=== PATIENT | male | born 1975 | race Two or more races ===

== ENCOUNTER 2020-08-08 07:17 | Outpatient (REF) | payer BC, SELFPAY | END 2020-08-08 07:18 | disposition home or self-care (01) | LOC: HO.LAB 07:17 | PROVIDERS: PCP Internal Medicine; Visit Provider Internal Medicine | DX: Z20.822 Contact with and (suspected) exposure to COVID-19 (principal) | CPT/HCPCS: 36415; C9803; U0003 ==

== ENCOUNTER 2020-11-17 08:22 | Outpatient (REF) | payer BC, SELFPAY ==
[2020-11-17 09:17] LABS: MANUAL DIFF FLAG NO
[2020-11-17 09:20] LABS: Basophils Percent Auto 0.4 % (0-2); Eosinophils Absolute Auto 0.1 X10*3/uL (0.0-0.4); Eosinophils Percent Auto 1.1 % (0-4); Hematocrit 40.8 % (42-52); Hemoglobin 12.9 g/dl (14.0-18.0); Imm Gran Abs Auto 0.01 X10*3/uL (0.00-0.03); Imm Gran Pct Auto 0.2 % (0.0-0.4); Lymphocytes Absolute Auto 1.9 X10*3/uL (1.2-4.9); Lymphocytes Percent Auto 36.2 % (20-40); Mean Corpuscular HGB Conc 31.6 g/dl (31.0-36.0); Mean Corpuscular Hemoglobin 27.7 pg (27.0-33.0); Mean Corpuscular Volume 87.6 fL (80-98); Mean Platelet Volume 9.9 fL (9.4-12.4); Monocytes Absolute Auto 0.6 X10*3/uL (0.1-1.2); Monocytes Percent Auto 10.4 % (2-11); Neutrophils Absolute Auto 2.8 X10*3/uL (2.0-8.3); Neutrophils Percent Auto 51.7 % (45-73); Platelet Count 304 X10*3/uL (160-400); Red Blood Count 4.66 X10*6/uL (4.60-5.80); Red Cell Distribution Width 13.5 % (11.0-16.0); White Blood Count 5.3 X10*3/uL (4.8-10.8)
[2020-11-17 09:49] LABS: Alanine Aminotransferase 10 U/L (0-40); Albumin Level 3.9 g/dL (3.5-5.0); Alkaline Phosphatase 67 U/L (39-117); Anion Gap 12 (12-20); Aspartate Amino Transferase 11 U/L (5-37); Bilirubin Total 0.7 mg/dL (0.0-1.0); Blood Urea Nitrogen 14 mg/dL (9-16); Calcium 9.1 mg/dL (8.4-10.2); Carbon Dioxide 26 mmol/L (22-29); Chloride 104 mmol/L (96-108); Cholesterol 133 mg/dL; Estimated Glomerular Filt Rate > 60; Glucose Fasting 173 mg/dL (60-99); HDL Cholesterol 41 mg/dL; LDL Cholesterol Calculated 77 mg/dl; Potassium 4.3 mmol/L (3.3-5.1); Sodium 138 mmol/L (135-145); Total Protein 6.8 g/dL (6.5-8.0); Triglycerides 76 mg/dL
[2020-11-17 10:31] LABS: Creatinine Urine 172.86 mg/dL; Estimated Average Glucose 318 mg/dL; Hemoglobin A1c % 12.7 %; Microalbum/Creatinine Ratio Ur 24.8 ug/mg cr
== END 2020-11-17 08:23 | disposition home or self-care (01) ==
LOC: HO.LAB 08:22
PROVIDERS: PCP Internal Medicine; Visit Provider Internal Medicine
DX: Z00.01 Encounter for general adult medical examination with abnormal findings (principal); E11.9 Type 2 diabetes mellitus without complications; E78.00 Pure hypercholesterolemia, unspecified; I10 Essential (primary) hypertension
CPT/HCPCS: 36415; 80053; 80061; 82043; 83036; 85025

== ENCOUNTER → 2021-02-26 14:32 | Outpatient (BNVA) | payer SELFPAY | PROVIDERS: PCP Internal Medicine; Visit Provider Physician Assistant | DX: Z02.79 Encounter for issue of other medical certificate (principal) ==

== ENCOUNTER 2021-04-01 08:26 | Outpatient (REF) | payer BC, SELFPAY | END 2021-04-01 08:27 | disposition home or self-care (01) | LOC: HO.LAB 08:26 | PROVIDERS: PCP Internal Medicine; Visit Provider Internal Medicine | DX: Z20.822 Contact with and (suspected) exposure to COVID-19 (principal) | CPT/HCPCS: C9803; U0003; U0005 ==

== ENCOUNTER 2022-02-10 06:00 | Outpatient (REF) | payer BC, SELFPAY ==
[2022-02-10 08:01] LABS: Estimated Average Glucose 263 mg/dL; Hemoglobin A1c % 10.8 %
[2022-02-10 08:38] LABS: Alanine Aminotransferase 39 U/L (0-40); Alkaline Phosphatase 78 U/L (39-117); Anion Gap 12 (12-20); Aspartate Amino Transferase 18 U/L (5-37); Bilirubin Total 0.5 mg/dL (0.0-1.0); Blood Urea Nitrogen 16 mg/dL (9-16); Carbon Dioxide 28 mmol/L (22-29); Chloride 102 mmol/L (96-108); Estimated Glomerular Filt Rate > 60; Glucose Random 295 mg/dL (60-115); Potassium 4.5 mmol/L (3.3-5.1); Sodium 137 mmol/L (135-145)
== END 2022-02-10 06:01 | disposition home or self-care (01) ==
LOC: HO.LAB 06:00
PROVIDERS: PCP Internal Medicine; Visit Provider Internal Medicine
DX: E11.65 Type 2 diabetes mellitus with hyperglycemia (principal); I10 Essential (primary) hypertension; L84 Corns and callosities; R80.0 Isolated proteinuria
CPT/HCPCS: 36415; 80053; 83036

== ENCOUNTER → 2022-09-25 15:05 | Outpatient (BNVA) | payer BC, SELFPAY | PROVIDERS: PCP Internal Medicine; Visit Provider Internal Medicine | DX: I48.19 Other persistent atrial fibrillation (principal); I10 Essential (primary) hypertension | CPT/HCPCS: 93005 ==

== ENCOUNTER → 2022-10-06 10:52 | Outpatient (REF) | payer BC, SELFPAY ==
--- NOTE | 2022-10-06 10:56 | HM_ITS ---
Conclusion: 1. Patient was monitored for total period of 3 days 2. Baseline was atrial fibrillation with average heart rate of 86 beats per minute overall adequate rate control 3. No significant pauses noted 4. Rare PVCs noted 5. No patient reported symptoms MTDD
--- NOTE | 2022-10-06 10:56 | CA_ITS ---
Transthoracic Echocardiogram Patient (Last, First, Middle): Jayce Johns A Gender: Male Date of : 1975 Age: 47 Procedure Date: 10/06/2022 Procedure Type: Transthoracic Echocardiogram Location: OP Height: 182.88 cm Weight: 115.21 kg BSA: 2.36 m2 Heart Rate: bpm BP: 134 / 80 mmHg Lifter Driver: Referring MD: Zafar Rosales MD Pnp: Baljinder Rodriguez MD Symptoms: I48.19 - Other persistent atrial fibrillation Study Quality: Fair, Good with Definity ECG Rhythm: Atrial Fibrillation Conclusions: - 1. Mildly dilated left ventricle with moderate to severe LV systolic dysfunction with LVEF of 30 35% 2. Moderately dilated left atrium 3. Mild mitral regurgitation 4. Normal RV systolic pressure 5. No gross pericardial effusion Findings Procedure Information Contrast agent, definity, is being given per protocol without apparent complications. Left Ventricle Mildly increased left ventricular cavity size. There is normal left ventricular wall thickness. The left ventricular systolic function is moderate to severely decreased. The visually estimated ejection fraction is between 30-35%. Diastolic function is indeterminate on the basis of available data. Right Ventricle Normal right ventricular cavity size and systolic function. Atria The left atrium is moderately dilated. Interatrial shunt cannot be excluded. The right atrium is mildly dilated. Aortic Valve Normal aortic valve structure and function. There is no aortic valve stenosis. There is no aortic valve regurgitation. Mitral Valve Normal mitral valve structure and function. There is mild mitral valve regurgitation. There is no mitral valve stenosis. Pulmonic Valve The pulmonic valve is likely normal. There is trace to mild pulmonic valve regurgitation. Tricuspid Valve Normal tricuspid valve structure. There is mild tricuspid valve regurgitation. The right ventricular systolic pressure is normal. The right ventricular systolic pressure is 18 mmHg. Normal right atrial pressure. There is no evidence of pulmonary hypertension. Great Vessels All visible segments of the aorta are normal in size. The pulmonary artery was not well visualized. Venous The inferior vena cava is normal in size and collapses greater than 50% with inspiration. Pericardium/Pleural There is no evidence of pericardial effusion. Prior Study Comparison No prior study available for comparison. Measurements 2D Linear Measurements IVSd: 1.07 0.6-0.9/0.6-1.0 cm LVIDd: 6.05 3.9-5.3/4.2-5.9 cm LVIDd Index: 2.56 2.4-3.2/2.2-3.1 cm/m2 LVIDs: 5.24 2.0-3.6 cm LVPWd: 1.02 0.7-1.1 cm Ao Root: 3.20 2.1-3.5 cm LA Diam: 4.10 2.7-3.8/3.0-4.0 cm LAIDs Index: 1.74 1.5-2.3 cm/m2 LV Mass: 330.62 67-162/88-224 g LV Mass Index: 140.10 43-95/49-115 g/m2 LVOT Diam: 2.30 3.0+(-)1.3 cm 2D Systolic Function EF 4C: 34.50 >55% EF 2C: 24.00 >55% EF BiP: 30.20 >55% Mitral Valve MV Pk E: 1.02 MV Decel Time: 271.00 E'Lateral: 12.10 E'Medial: 8.16 E/E' Med: 12.50 E/E' Lat: 8.40 PHT: 79.00 MVA PHT: 2.78 Decel Lumpkin: 3.75 Aortic Valve AoV Pk Romulo: 1.23 AoV Mn Romulo: 0.77 AoV VTI: 0.27 AoV Pk Grad: 6.00 Aov Mn Grad: 3.00 BRADFORD Cont.VTI: 2.44 LVOT LVOT Pk Romulo: 0.80 LVOT Mn Romulo: 0.58 LVOT VTI: 0.16 LVOT Pk Grad: 3.00 LVOT Mn Grad: 2.00 LVOT Diam: 2.30 LVOT Area: 4.15 Diastolic Function MV Pk E: 1.02 E'Medial: 8.16 E/E' Med: 12.50 E' Laterial: 12.10 E/E' Lat: 8.40 Right Ventricle TAPSE (mm): 29.00 TVS' Romulo: 12.00 Tricuspid Valve TR Pk Romulo: 1.96 TR Pk Grad: 15.00 RA Press: 3.00 RVSP: 18.00 Great Vessels Aorta Ao Root-2D: 3.20 2.0-3.7 cm Ao Asc: 3.40 2.1-3.4 cm Pulmonary Valve PV Pk Romulo: 1.18 Peak PV Grad: 6.00 Updated in Other Vendor System with Status of Final Baljinder Rodriguez MD electronically signed on 10/07/2022 4:55:03 PM with status of Final
== END ==
LOC: HO.CARD 10:52
PROVIDERS: Visit Provider Internal Medicine
DX: I48.19 Other persistent atrial fibrillation (principal)
CPT/HCPCS: 93242; 93306; Q9957

== ENCOUNTER → 2022-10-15 12:26 | Outpatient (BNVA) | payer BC, SELFPAY | PROVIDERS: PCP Internal Medicine; Referring Provider Internal Medicine; Visit Provider Internal Medicine | DX: Z13.89 Encounter for screening for other disorder (principal) ==

== ENCOUNTER → 2022-11-10 14:40 | Outpatient (REF) | payer BC, SELFPAY | LOC: HO.SL 14:40 | PROVIDERS: PCP Internal Medicine; Visit Provider Internal Medicine | DX: G47.33 Obstructive sleep apnea (adult) (pediatric) (principal); I48.19 Other persistent atrial fibrillation | CPT/HCPCS: 95806 ==

== ENCOUNTER → 2022-11-17 09:59 | Outpatient (REF) | payer BC, SELFPAY ==
--- NOTE | ~2022-11-17 | NM_ITS ---
Lexiscan Myocardial perfusion study Indication: Cardiomyopathy, assess for coronary disease and ischemia Technique: The patient was brought in for a Lexiscan perfusion study on 11/17/2022 and was injected 0.4 mg of Lexiscan intravenously. Within a minute of this injection 40 mCi of sestamibi was given intravenously. Images were obtained using the SPECT gamma camera interlaced with the gating device. Images were obtained in supine position. Resting perfusion study was performed on 11/18/2022. Patient was administered 40 mCi of sestamibi intravenously at rest. Images were then obtained in supine position. Images were processed with the software and compared side to side in short axis, horizontal long axis and vertical long axis views. Total DLP 106mGy-cm. Findings: Raw acquisition reviewed. The stress perfusion study showed diminished tracer uptake along the inferior wall towards apical portion. There is adjacent some diaphragmatic tracer uptake. There is some improvement with CT attenuation correction suggestive of diaphragmatic attenuation artifact. The gated study shows diminished LV systolic function with calculated LVEF of 37%. LV cavity is normal in size. The gated study shows globally reduced wall thickening and contraction of segments. Resting study shows diminished tracer uptake along the inferior wall. This looks worse than stress acquisition that has likely all artifactual. There is improvement with CT attenuation correction suggestive of diaphragmatic attenuation artifact. Gating at rest reveals globally reduced wall thickening/contractility with LVEF of 25%. The findings are consistent with no clear reversible or fixed perfusion defects. NM/NM philipp perf SPECT rest & str Impression: 1. Myocardial perfusion imaging study shows probably normal myocardial perfusion. No definitive evidence of any ischemia or infarction. 2. Gated LVEF is 37% during stress and 25% during rest. Correlate with echocardiogram. 3. Transient ischemic dilatation not present. LV chamber is dilated. EKG component of the test reported separately.
--- NOTE | 2022-11-17 10:02 | CA_ITS ---
Acquisition Time: 2022-11-17 10:31:27 Total Exercise Time: 00:02:00 Test Indications: AFIB Medications: SEE H Protocol: LEXISCAN Max HR: 144 BPM 83% of Pred: 172 BPM Max BP: 128/064 mmHG Max Work Load: 1.6 METS Pharmacological stress test with Lexiscan injection, while walking slow on treadmill, without anginal symptoms, with isolated PVCs, with normotensive response to injection, with nondiagnostic EKG for ischemia. Nuclear images pending. Test reviewed with Dr Rodriguez. Referred By: Zafar Rosales Overread By: SIMONE FERGUSON
== END ==
LOC: HO.CARD 09:59
PROVIDERS: PCP Internal Medicine; Visit Provider Internal Medicine
DX: I48.19 Other persistent atrial fibrillation (principal); I42.9 Cardiomyopathy, unspecified
CPT/HCPCS: 78452; 93017; A9500; J0280; J2785

== ENCOUNTER 2022-11-30 15:23 | Emergency (ER) | payer BC, SELFPAY ==
--- NOTE | 2022-11-30 15:26 | ECG_ITS ---
Test Reason : CHEST PAIN Blood Pressure : / mmHG Vent. Rate : 095 BPM Atrial Rate : 000 BPM P-R Int : 000 ms QRS Dur : 098 ms QT Int : 344 ms P-R-T Axes : 000 026 055 degrees QTc Int : 432 ms Atrial fibrillation Incomplete right bundle branch block Abnormal ECG No previous ECGs available Referred By: Generic ED Physician Electronically Signed By:Fabiano Sinha
[2022-11-30 15:34] VITALS: BP 118/92; PULSE 102; RESP 16; TEMP 36.4; O2SAT 99; BMI 33.0
--- NOTE | 2022-11-30 15:35 | ED_ITS ---
HPI - General Adult General Chief complaint: Chest Pain Stated complaint: Chest Pain Time Seen by Provider: 11/30/22 16:19 Source: patient Mode of arrival: ambulatory Limitations: no limitations History of Present Illness HPI narrative: Patient with paroxysmal AFib on Eliquis diabetes cardiomyopathy with ejection f raction 30-35% patient is supposed to be on metoprolol but is not taking it for last few days comes here for dull chest pain feeling for the last few weeks pain comes and goes lasts only for few minutes with slight shortness of breath no dizziness or syncope episode patient does not feel his AFib did not check his heart rate on arrival patient heart rate was 108 but patient was not feeling it Related Data Home Medications Medication Instructions Recorded Confirmed atorvastatin 40 mg tablet 40 mg PO BEDTIME 09/25/22 10/15/22 glimepiride 4 mg tablet 4 mg PO DAILY 09/25/22 10/15/22 lisinopril 10 mg tablet 10 mg PO DAILY 09/25/22 10/15/22 metformin 1,000 mg tablet 1,000 mg PO DAILY 09/25/22 10/15/22 Previous Rx's Medication Instructions Recorded apixaban 5 mg tablet (Eliquis) 5 mg PO BID 90 days #180 tabs 09/25/22 metoprolol succinate 50 mg 50 mg PO DAILY #90 tabs 09/25/22 tablet,extended release 24 hr (Toprol XL) metoprolol tartrate 25 mg tablet 25 mg PO BID #180 tabs 11/30/22 Allergies Allergy/AdvReac Type Severity Reaction Status Date / Time No Known Allergies Allergy Verified 10/15/22 12:31 Review of Systems Review of Systems: Yes all other systems are reviewed and are negative [facility] Past Medical History Medical History Diabetes Hyperlipidemia, unspecified Hypertension Morbid obesity Surgical History History of surgery on lower extremity Hx of knee surgery Family History Family History Mother HTN (hypertension) Father Diabetes Social History Social History Alcohol intake: current Alcohol intake frequency: holidays/special occasions only Patient Tobacco Use Status: Former Tobacco user Quit Date: 2019 Smoked in Last 30 Days: No Substance Use Type: Marijuana Substance Use Frequency: Occasionally Advance Directives: No Advance Directives Information Provided: Yes Physical Exam ED Vital Signs: Vital Signs - 24 hr 11/30/22 15:34 11/30/22 15:53 11/30/22 18:05 Temperature 97.5 F 98.0 F 97.7 F Pulse Rate 102 H 95 86 Respiratory Rate 16 16 19 Blood Pressure 118/92 H 122/73 122/60 Pulse Oximetry 99 100 96 Oxygen Delivery Method Room Air Room Air Room Air BMI result Body Mass Index 33.0 Appearance: Alert. Oriented X3. No acute distress. Eyes: PERRLA, No Nystagmus ENT: Pharynx normal. Oral Mucosa moist Neck: Normal inspection. Neck supple. CVS: Irregularly irregular tachycardia no murmur rub or gallop Pulses normal. Respiratory: No respiratory distress. Equal air entry bilateral, no wheezing/rales/rhonchi Abdomen: Soft and nontender. Bowel sounds are present, no mass palpable, no CVA tenderness Skin: Skin warm and dry. Normal skin color. Normal skin turgor. Extremities: No lower extremity edema. No calf tenderness Neuro: Oriented X 3. No motor deficit. No sensory deficit.No cerebellar signs , cranial nerves II-XII intact Course Course Course Narrative: RME performed by Kamilah Evans PA-C. Patient is a 47 year old assigned male at presenting to the emergency department with epigastric pain. Patient states that he has been having epigastric type pain for weeks that is intermittent. Labs and imaging ordered. Patient placed back in the waiting room pending room availability and results. Medications Administered Discontinued Medications Generic Name Dose Route Start Last Admin Trade Name Freq PRN Reason Stop Dose Admin Metoprolol Succinate 50 mg 11/30/22 16:41 11/30/22 17:14 Metoprolol Succinate Er 50 Mg Tab.Er.24h PO 11/30/22 16:42 50 mg ONCE ONE Administration Protocol Medical Decision Making Medical Decision Making [facility] Narrative: Patient has atypical chest pain/discomfort with history of AFib on Eliquis to metoprolol which is not taking a bus to be tachycardic when he arrived likely the cause for chest discomfort will prescribe patient metoprolol 25 mg twice daily which he can afford advised to follow with cardiology Lab Data [facility] Lab Attestation statement: I reviewed the patient's lab results. 11/30/22 15:46 11/30/22 15:46 Labs: Lab Results 11/30/22 11/30/22 11/30/22 Range/Units 15:46 15:46 15:46 WBC 5.1 (4.8-10.8) X10*3/uL RBC 4.53 L (4.60-5.80) X10*6/uL Hgb 13.0 L (14.0-18.0) g/dl Hct 40.4 L (42.0-52.0) % MCV 89.2 (80.0-98.0) fL MCH 28.7 (27.0-33.0) pg MCHC 32.2 (31.0-36.0) g/dl RDW 15.1 (11.0-16.0) % Plt Count 272 (160-400) X10*3/uL MPV 9.9 (9.4-12.4) fL Immature Gran % (Auto) 0.2 (0.0-0.4) % Neut % (Auto) 54.7 (45-73) % Lymph % (Auto) 33.0 (20-40) % [place] % (Auto) 11.1 H (2-11) % Eos % (Auto) 0.6 (0-4) % Baso % (Auto) 0.4 (0-2) % Lymph # (Auto) 1.7 (1.2-4.9) X10*3/uL [place] # (Auto) 0.6 (0.1-1.2) X10*3/uL Eos # (Auto) 0.0 (0.0-0.4) X10*3/uL Baso # (Auto) 0.0 (0.0-0.2) X10*3/uL Abs Immat Gran (auto) 0.01 (0.00-0.03) X10*3/uL Absolute Neuts (auto) 2.8 (2.0-8.3) x10*3/uL Absolute Nucleated RBC 0.000 (0.0-0.012) X10*3/uL Nucleated RBC % (auto) 0.0 (0.0-0.2) /100WBC PT 12.6 (10.0-13.1) SEC INR 1.1 (0.9-1.1) APTT 34.5 (26.0-36.4) SEC Sodium 139 (135-145) mmol/L Potassium 4.2 (3.3-5.1) mmol/L Chloride 103 (96-108) mmol/L Carbon Dioxide 29 (22-29) mmol/L Anion Gap 11 L (12-20) BUN 16 (9-16) mg/dL Creatinine 1.26 (0.5-1.4) mg/dL Estim Creat Clear Calc 94.6 Estimated GFR > 60 Random Glucose 228 H (60-115) mg/dL Calcium 9.5 (8.4-10.2) mg/dL Magnesium 1.9 (1.6-2.6) mg/dL Total Bilirubin 1.1 H (0.0-1.0) mg/dL AST 16 (5-37) U/L ALT 18 (0-40) U/L Alkaline Phosphatase 64 (39-117) U/L Troponin I High Sens (<3.5-35.0) ng/L B-Natriuretic Peptide (<100) pg/mL Total Protein 7.0 (6.5-8.0) g/dL Albumin 4.1 (3.5-5.0) g/dL Lipase 16 (8-78) U/L 11/30/22 11/30/22 Range/Units 15:46 15:46 WBC (4.8-10.8) X10*3/uL RBC (4.60-5.80) X10*6/uL Hgb (14.0-18.0) g/dl Hct (42.0-52.0) % MCV (80.0-98.0) fL MCH (27.0-33.0) pg MCHC (31.0-36.0) g/dl RDW (11.0-16.0) % Plt Count (160-400) X10*3/uL MPV (9.4-12.4) fL Immature Gran % (Auto) (0.0-0.4) % Neut % (Auto) (45-73) % Lymph % (Auto) (20-40) % Bosque % (Auto) (2-11) % Eos % (Auto) (0-4) % Baso % (Auto) (0-2) % Lymph # (Auto) (1.2-4.9) X10*3/uL Bosque # (Auto) (0.1-1.2) X10*3/uL Eos # (Auto) (0.0-0.4) X10*3/uL Baso # (Auto) (0.0-0.2) X10*3/uL Abs Immat Gran (auto) (0.00-0.03) X10*3/uL Absolute Neuts (auto) (2.0-8.3) x10*3/uL Absolute Nucleated RBC (0.0-0.012) X10*3/uL Nucleated RBC % (auto) (0.0-0.2) /100WBC PT (10.0-13.1) SEC INR (0.9-1.1) APTT (26.0-36.4) SEC Sodium (135-145) mmol/L Potassium (3.3-5.1) mmol/L Chloride (96-108) mmol/L Carbon Dioxide (22-29) mmol/L Anion Gap (12-20) BUN (9-16) mg/dL Creatinine (0.5-1.4) mg/dL Estim Creat Clear Calc Estimated GFR Random Glucose (60-115) mg/dL Calcium (8.4-10.2) mg/dL Magnesium (1.6-2.6) mg/dL Total Bilirubin (0.0-1.0) mg/dL AST (5-37) U/L ALT (0-40) U/L Alkaline Phosphatase (39-117) U/L Troponin I High Sens 7.1 (<3.5-35.0) ng/L B-Natriuretic Peptide 198 H (<100) pg/mL Total Protein (6.5-8.0) g/dL Albumin (3.5-5.0) g/dL Lipase (8-78) U/L Independent Interpretation I performed an independent interpretation of an: EKG Interpretation: Atrial fibrillation ventricular rate 95 beats per minute no acute ST-T changes no acute ischemia Discharge Plan Discharge Clinical Impression: Paroxysmal A-fib Patient Disposition: Home, Self-Care Instructions: A-fib (Atrial Fibrillation) (ED) Additional Instructions: Continue medication as prescribed by youth advocate And start taking metoprolol 25 mg twice daily instead of Toprol-XL which you were not able to fill Check your heart rate it should be less than 90 Prescriptions: New metoprolol tartrate 25 mg tablet 25 mg PO BID Qty: 180 3RF No Action lisinopril 10 mg tablet 10 mg PO DAILY glimepiride 4 mg tablet 4 mg PO DAILY atorvastatin 40 mg tablet 40 mg PO BEDTIME metformin 1,000 mg tablet 1,000 mg PO DAILY metoprolol succinate [Toprol XL] 50 mg tablet extended release 24 hr 50 mg PO DAILY Qty: 90 3RF Eliquis 5 mg tablet 5 mg PO BID 90 Days Qty: 180 3RF
[2022-11-30 15:53] VITALS: BP 122/73; PULSE 95; RESP 16; TEMP 36.7; O2SAT 100
[2022-11-30 15:53] LABS: MANUAL DIFF FLAG NO
[2022-11-30 15:56] LABS: Basophils Percent Auto 0.4 % (0-2); Eosinophils Percent Auto 0.6 % (0-4); Hematocrit 40.4 % (42.0-52.0); Imm Gran Abs Auto 0.01 X10*3/uL (0.00-0.03); Imm Gran Pct Auto 0.2 % (0.0-0.4); Lymphocytes Absolute Auto 1.7 X10*3/uL (1.2-4.9); Mean Corpuscular HGB Conc 32.2 g/dl (31.0-36.0); Mean Corpuscular Hemoglobin 28.7 pg (27.0-33.0); Mean Corpuscular Volume 89.2 fL (80.0-98.0); Mean Platelet Volume 9.9 fL (9.4-12.4); Monocytes Absolute Auto 0.6 X10*3/uL (0.1-1.2); Monocytes Percent Auto 11.1 % (2-11); Neutrophils Absolute Auto 2.8 x10*3/uL (2.0-8.3); Neutrophils Percent Auto 54.7 % (45-73); Platelet Count 272 X10*3/uL (160-400); Red Blood Count 4.53 X10*6/uL (4.60-5.80); Red Cell Distribution Width 15.1 % (11.0-16.0); White Blood Count 5.1 X10*3/uL (4.8-10.8)
[2022-11-30 16:02] LABS: INTERNATIONAL NORM RATIO 1.1 (0.9-1.1); Prothrombin Time 12.6 SEC (10.0-13.1)
[2022-11-30 16:04] LABS: Partial Thromboplastin Time 34.5 SEC (26.0-36.4)
[2022-11-30 16:11] LABS: Alanine Aminotransferase 18 U/L (0-40); Albumin Level 4.1 g/dL (3.5-5.0); Alkaline Phosphatase 64 U/L (39-117); Anion Gap 11 (12-20); Aspartate Amino Transferase 16 U/L (5-37); Bilirubin Total 1.1 mg/dL (0.0-1.0); Blood Urea Nitrogen 16 mg/dL (9-16); Calcium 9.5 mg/dL (8.4-10.2); Carbon Dioxide 29 mmol/L (22-29); Chloride 103 mmol/L (96-108); Creatinine Clr Calc Pharmacy 94.6; Estimated Glomerular Filt Rate > 60; Glucose Random 228 mg/dL (60-115); Lipase 16 U/L (8-78); Magnesium 1.9 mg/dL (1.6-2.6); Potassium 4.2 mmol/L (3.3-5.1); Sodium 139 mmol/L (135-145)
[2022-11-30 16:14] LABS: B Type Natriuretic Peptide 198 pg/mL (<100)
[2022-11-30 16:19] LABS: Troponin-I High Sensitivity 7.1 ng/L (<3.5-35.0)
[2022-11-30] MEDS: Metoprolol Succinate ER 50 MG TAB.ER.24H PO (17:14)
[2022-11-30 18:05] VITALS: BP 122/60; PULSE 86; RESP 19; TEMP 36.5; O2SAT 96
== END 2022-11-30 18:27 | disposition home or self-care (01) ==
PROVIDERS: Physician Assistant Medical; Emergency Provider Internal Medicine
DX: I48.0 Paroxysmal atrial fibrillation (principal); R07.89 Other chest pain; I48.91 Unspecified atrial fibrillation; R06.02 Shortness of breath; Z79.01 Long term (current) use of anticoagulants; Z79.899 Other long term (current) drug therapy; Z87.891 Personal history of nicotine dependence
CPT/HCPCS: 36415; 80053; 83690; 83735; 83880; 84484; 85025; 85610; 85730; 93005; 99284; 99285

== ENCOUNTER → 2023-01-13 14:29 | Outpatient (BNVA) | payer BC, SELFPAY | PROVIDERS: PCP Internal Medicine; Referring Provider Internal Medicine; Visit Provider Internal Medicine ==

== ENCOUNTER 2023-01-22 08:44 | Day surgery (SDC) | payer BC, SELFPAY ==
[2023-01-22 07:54] VITALS: BMI 31.9
[2023-01-22 09:06] VITALS: BP 155/87; PULSE 80; RESP 18; TEMP 36.7; O2SAT 98
--- NOTE | 2023-01-22 09:23 | HO.ANESPROP2 ---
HPI - Anesthesia Eval Consult details Narrative: For MARCE/cardioversion PMFSH Active Problems Active Problems: All Active Problems (Updated 12/01/22 @ 00:25 by Jose Andrews) Cardiomyopathy (Acute) Morbid obesity (Acute) Hypertension (Acute) Diabetes (Acute) Persistent atrial fibrillation (Acute) Past Medical History Medical History Diabetes Hyperlipidemia, unspecified Hypertension Morbid obesity Family History Family History Mother HTN (hypertension) Father Diabetes Family history of problems with anesthesia: No Surgical History Surgical History History of surgery on lower extremity Hx of knee surgery History of Problems with Anesthesia: No Social History Social History Alcohol intake: current Alcohol intake frequency: holidays/special occasions only Patient Tobacco Use Status: Former Tobacco user Quit Date: 2019 Substance Use Type: Marijuana Substance Use Frequency: Occasionally Are you DNR?: No Advance Directives: No Advance Directives Information Provided: Yes Nutrition Risks: No Nutritional Risk Meds Allergies Allergy/AdvReac Type Severity Reaction Status Date / Time No Known Allergies Allergy Verified 01/22/23 08:54 Active Medications: Current Medications Lactated Ringer's (Lr) 1,000 mls @ 50 mls/hr IVCONT .Q20H [facility] Home Medications Medication Instructions Recorded Confirmed Last Taken Type atorvastatin 40 mg tablet 40 mg PO BEDTIME 09/25/22 01/22/23 Unknown History glimepiride 4 mg tablet 4 mg PO DAILY 09/25/22 01/22/23 Unknown History lisinopril 10 mg tablet 10 mg PO DAILY 09/25/22 01/22/23 Unknown History metformin 1,000 mg tablet 1,000 mg PO DAILY 09/25/22 01/22/23 01/22/23 History Exam Exam Date and Time: January 22, 2023922 Height,Weight and Vital Signs: Height 6 ft 1 in Weight 109.769 kg Last Vital Signs Temp 98.1 F 01/22/23 09:06 Pulse 80 01/22/23 09:06 Resp 18 01/22/23 09:06 BP 155/87 H 01/22/23 09:06 Pulse Ox 98 01/22/23 09:06 O2 Del Method Room Air 01/22/23 09:06 Pertinent Lab Results Pertinent Lab Results: Laboratory Tests 01/22/23 09:04 POC Glucose 205 H Airway Mallampati Class: I TM Dist: >3cm Neck ROM: Full Partial: Upper Heart: ok Lungs: ok Assessment and Plan Assessment Anesthesia Assessment: Anesthesia Plan Discussed and Chart Reviewed Final Anesthetic Review Family History of Problems with Anesthesia: No History of Problems with Anesthesia: No NPO: Yes ASA Class: III Final Preanesthetic Review: No Changes in Pt Med Stat, Meds/Allgs Chart Reviewed, Consent Obtained/Reviewed and Anes Risks/Benef Reviewed Patient Risk: Intermediate Procedure Risk: Intermediate Anesthetic Plan Anesthetic Plan: MAC: and Agree w/ Assess. and Plan Disposition: Standard PACU
--- NOTE | 2023-01-22 10:07 | MHC.SHP ---
Pre-Procedural Eval Section A Date of Service: 01/22/23 The patient is an INPATIENT: No Section B Chief Complaint: Other persistent atrial fibrillation Allergies: Allergies Allergy/AdvReac Type Severity Reaction Status Date / Time No Known Allergies Allergy Verified 01/22/23 08:54 Plan I have reviewed the history and physical and performed a pertinent physical examination on my patient. No changes have occurred unless specified. Time Spent With Patient Time: Total time managing care of this patient today ____ minutes.
[2023-01-22 11:05] VITALS: BP 111/57; PULSE 63; RESP 18; TEMP 36.3; O2SAT 97
[2023-01-22 11:20] VITALS: BP 126/74; PULSE 73; RESP 18; TEMP 36.4; O2SAT 97
== END 2023-01-22 12:14 | disposition home or self-care (01) ==
PROVIDERS: PCP Internal Medicine; Visit Provider Internal Medicine
PROC: (CPT 93312; 2023-01-22 10:00)
DX: I48.19 Other persistent atrial fibrillation (principal); I10 Essential (primary) hypertension; E11.9 Type 2 diabetes mellitus without complications; Z79.01 Long term (current) use of anticoagulants; Z79.84 Long term (current) use of oral hypoglycemic drugs
CPT/HCPCS: 93312; 82947; J3010; Q9957

== ENCOUNTER 2023-03-13 08:31 | Day surgery (SDC) | payer BC, SELFPAY ==
[2023-03-11 10:11] VITALS: BMI 31.9
--- NOTE | 2023-03-12 10:45 | P.CONAN_ITS ---
Documented by User: Virginia Vogt NP 03/12/23 10:49 HPI - Anesthesia Eval Consult details Narrative: 47yo M for Transesophageal Echocardiogram, Cardioversion s/p MARCE/Cardioversion 01/2023 with TIVA Xarelto for afib PMFSH Active Problems Active Problems: All Active Problems (Updated 12/01/22 @ 00:25 by Jose Andrews) Cardiomyopathy (Acute) Morbid obesity (Acute) Hypertension (Acute) Diabetes (Acute) Persistent atrial fibrillation (Acute) Past Medical History Medical History Diabetes Hyperlipidemia, unspecified Hypertension Morbid obesity Family History Family History Mother HTN (hypertension) Father Diabetes Family history of problems with anesthesia: No Surgical History Surgical History History of surgery on lower extremity Hx of knee surgery History of Problems with Anesthesia: No Social History Social History Alcohol intake: current Alcohol intake frequency: holidays/special occasions only Patient Tobacco Use Status: Former Tobacco user Quit Date: 2019 Substance Use Type: Marijuana Are you DNR?: No Advance Directives: No Advance Directives Information Provided: Yes Meds Allergies Allergy/AdvReac Type Severity Reaction Status Date / Time No Known Allergies Allergy Verified 01/22/23 08:54 Home Medications Medication Instructions Recorded Confirmed Last Taken Type atorvastatin 40 mg tablet 40 mg PO BEDTIME 09/25/22 03/11/23 Unknown History glimepiride 4 mg tablet 4 mg PO DAILY 09/25/22 03/11/23 Unknown History lisinopril 10 mg tablet 10 mg PO DAILY 09/25/22 03/11/23 Unknown History metformin 1,000 mg tablet 1,000 mg PO DAILY 09/25/22 03/11/23 01/22/23 History Exam Exam Date and Time: March 12, 2023 1045 Height,Weight and Vital Signs: Height 6 ft 1 in Weight 109.769 kg Pertinent Lab Results Pertinent Lab Results: Laboratory Tests 11/30/22 11/30/22 15:46 15:46 WBC 5.1 Hgb 13.0 L Hct 40.4 L Plt Count 272 Sodium 139 Potassium 4.2 Chloride 103 Carbon Dioxide 29 BUN 16 Creatinine 1.26 Narrative Narrative: EKG 11/2022 Vent. Rate : 095 BPM ? ? Atrial Rate : 000 BPM ?? P-R Int : 000 ms? QRS Dur : 098 ms ? ? QT Int : 344 ms ? ? ? P-R-T Axes : 000 026 055 degrees ?? QTc Int : 432 ms ? Atrial fibrillation Incomplete right bundle branch block Abnormal ECG No previous ECGs available NM philipp perf SPECT rest & str 11/2022 Impression: ? 1.? Myocardial perfusion imaging study shows probably normal myocardial perfusion. No definitive evidence of any ischemia or infarction. 2.? Gated LVEF is 37% during stress and 25% during rest. Correlate with echocardiogram. 3. Transient ischemic dilatation not present. LV chamber is dilated. ? EKG component of the test reported separately. MARCE 01/2023 Conclusion: ??? Faint echodensity in the left atrial appendage; suspicious for thrombus.? Findings discussed with patient Assessment and Plan Assessment Anesthesia Assessment: Chart Reviewed Final Anesthetic Review Family History of Problems with Anesthesia: No History of Problems with Anesthesia: No Documented by User: Keely Newby MD 03/13/23 10:28 [facility] Past Medical History Medical History Diabetes Hyperlipidemia, unspecified Hypertension Morbid obesity Family History Family History Mother HTN (hypertension) Father Diabetes Surgical History Surgical History History of surgery on lower extremity Hx of knee surgery Social History Social History Alcohol intake: current Alcohol intake frequency: holidays/special occasions only Patient Tobacco Use Status: Former Tobacco user Quit Date: 2019 Substance Use Type: Marijuana Are you DNR?: No Advance Directives: No Advance Directives Information Provided: Yes Meds Allergies Allergy/AdvReac Type Severity Reaction Status Date / Time No Known Allergies Allergy Verified 01/22/23 08:54 Home Medications Medication Instructions Recorded Confirmed Last Taken Type atorvastatin 40 mg tablet 40 mg PO BEDTIME 09/25/22 03/11/23 Unknown History glimepiride 4 mg tablet 4 mg PO DAILY 09/25/22 03/11/23 Unknown History lisinopril 10 mg tablet 10 mg PO DAILY 09/25/22 03/11/23 Unknown History metformin 1,000 mg tablet 1,000 mg PO DAILY 09/25/22 03/11/23 01/22/23 History Exam Airway Mallampati Class: II TM Dist: >3cm Neck ROM: Full Partial: Upper Heart: afib Lungs: cta Assessment and Plan Assessment Anesthesia Assessment: Anesthesia Plan Discussed Final Anesthetic Review NPO: Yes ASA Class: III and Emergency Final Preanesthetic Review: No Changes in Pt Med Stat, Meds/Allgs Chart Reviewed, Consent Obtained/Reviewed and Anes Risks/Benef Reviewed Patient Risk: Intermediate Procedure Risk: Low Anesthetic Plan Anesthetic Plan: MAC: Disposition: Standard PACU
[2023-03-13 08:41] VITALS: BP 147/93; PULSE 96; RESP 20; TEMP 36.6; O2SAT 98
[2023-03-13 08:56] LABS: Glucose, Whole Blood 216 mg/dL (60-115)
[2023-03-13] MEDS: Lactated Ringers 1,000 ML 100 ML IVCONT (09:09)
--- NOTE | 2023-03-13 09:28 | P.HPSUR_ITS ---
Pre-Procedural Eval Section A Date of Service: 03/13/23 The patient is an INPATIENT: No Changes since office visit: Yes Patient answered all questions The History & Physical has been completed within 30 days and I have reviewed it.: No Section B Chief Complaint: Other persistent atrial fibrillation Details of Present Illness: Last office note from 01/13/2023. Patient was recently seen in consultation regarding atrial fibrillation. On rate control and Xarelto. No clear cardiac symptoms but he does get some fullness in the epigastric region. Not clear if it is a cardiac manifestation of cardiomyop athy/atrial fibrillation. We did MARCE few weeks back but there is a question of left atrial appendage thrombus and hence it is being rescheduled. This in consideration the fact that he also had some noncompliance in the past with anticoagulation but currently much more compliant according to him. Relevant Family History (Specify if Yes): No Relevant Social History: None Present Medications: see Short Stay Collaborative assessment Medical History: No relevant PMH Allergies: Allergies Allergy/AdvReac Type Severity Reaction Status Date / Time No Known Allergies Allergy Verified 01/22/23 08:54 Review of Systems Review of Systems Comment: 10 system review done and nothing significant. Exam Exam Comment: Const General: comfortable and no acute distress Orientation/consciousness: patient oriented x3 HEENT Other: Unremarkable Head: Yes normal to inspection Neck Neck: Yes normal visual inspection Chest Chest palpation & inspection: normal inspection of the chest Resp Auscultation: clear to auscultation bilaterally Cardio Palpation: normal PMI Heart sounds: S1 normal heart sound present, S2 normal heart sound present, no gallops, no murmurs and no rubs GI Palpation (GI): Soft to palpation Back/Spine/Pelvis Other: unremarkable Skin General skin exam: no rashes or lesions noted Neuro General: patient oriented x3 Extrem General: Yes normal to inspection Psych Mental Status: mental status grossly normal Plan I have reviewed the history and physical and performed a pertinent physical examination on my patient. No changes have occurred unless specified. Time Spent With Patient Time: Total time managing care of this patient today ____ minutes.
--- NOTE | 2023-03-13 09:49 | CA_ITS ---
Transesophageal Echocardiogram Patient (Last, First, Middle): Jayce Johns A Gender: Male Date of : 1975 Age: 47 Procedure Date: 03/13/2023 Procedure Type: Transesophageal Echocardiogram Location: OP Height: 185.42 cm Weight: 109.77 kg BSA: 2.33 m2 Heart Rate: 80 bpm BP: 139 / 70 mmHg Top Collar Baster: KAMAR Referring MD: Zafar Rosales MD Symptoms: Atrial fibrillation Conclusion: ??? There is no evidence of a thrombus in the left atrial appendage. Findings Procedure Information The quality of the study was good. Consent was obtained prior to the procedure. Pre MARCE oral cavity was checked and revealed no overcrowding. The adult 3D probe was passed with no difficulty. Left Ventricle The left ventricular systolic function is moderately decreased. The visually estimated ejection fraction is between 30-35%. LV cavity appears dilated. Right Ventricle Normal right ventricular cavity size and systolic function. Atria There is no evidence of a thrombus in the left atrial appendage. Suspect some artifact in appendage. Reduced velocities. Aortic Valve There is a normal trileaflet aortic valve. There is no aortic valve stenosis. There is trace (trivial) aortic valve regurgitation. Mitral Valve The mitral valve appears normal. There is mild mitral valve regurgitation. There is no mitral valve stenosis. Pulmonic Valve The pulmonic valve was not well visualized. Tricuspid Valve Normal tricuspid valve structure. There is trace tricuspid valve regurgitation. Great Vessels The asc aorta is normal in size. Possibly minimal plaque in visualized areas of arch, descending thoracic aorta. Pericardium/Pleural There is no evidence of pericardial effusion. Prior Study Comparison Changes noted compared to prior study dated: 01/22/2023. see comment on EVELYNE. Updated by Zafar Rosales on 11:46 AM with Status of Final Zafar Rosales MD electronically signed on 03/14/2023 11:46:06 AM with status of Final
--- NOTE | 2023-03-13 11:02 | ECG_ITS ---
Test Reason : post cardioversion Blood Pressure : / mmHG Vent. Rate : 063 BPM Atrial Rate : 063 BPM P-R Int : 176 ms QRS Dur : 092 ms QT Int : 394 ms P-R-T Axes : 061 011 058 degrees QTc Int : 403 ms Normal sinus rhythm Normal ECG When compared with ECG of 30-NOV-2022 15:27, Sinus rhythm has replaced Atrial fibrillation Vent. rate has decreased BY 32 BPM Referred By: Zafar Rosales Electronically Signed By:DELFIN NOYOLA
--- NOTE | 2023-03-13 11:03 | HO.CARDIVERS ---
Cardioversion Procedure Note Cardioversion Date of Procedure: 03/13/2023 Ordering Provider: Performing Provider: Indication for Procedure: Persistent atrial fibrillation/cardiomyopathy. Pre-Op Diagnosis: Atrial fibrillation Post-Op Diagnosis: Sinus rhythm MARCE findings (if MARCE Performed): No definitive EVELYNE thrombus History: See office note. Consent: Informed consent obtained. Procedure: After informed consent was obtained, patient was taken to the OR. The patient was then positioned appropriately. MARCE completed but no clear thrombus. The cardioversion pads were placed in anteroposterior position. 200 joules of synchronized shock was administered. The rhythm converted from atrial fibrillation to sinus rhythm. Patient remained in sinus rhythm after the end of procedure. Complications: None Impression: Successful cardioversion Recommendations: 12 lead EKG. Start Amiodarone. Likely refer for atrial fibrillation ablation.
[2023-03-13 11:05] VITALS: BP 127/75; PULSE 61; RESP 17; TEMP 36.8; O2SAT 97
[2023-03-13 11:20] VITALS: BP 141/81; PULSE 69; RESP 16; O2SAT 97
[2023-03-13] MEDS: Amiodarone HCL 200 MG TABLET 400 MG PO (11:20)
[2023-03-13 11:35] VITALS: BP 135/84; PULSE 66; RESP 16; O2SAT 98
[2023-03-13 11:50] VITALS: BP 145/85; PULSE 73; RESP 17; TEMP 36.1; O2SAT 99
== END 2023-03-13 12:25 | disposition home or self-care (01) ==
PROVIDERS: PCP Internal Medicine; Visit Provider Internal Medicine
PROC: (CPT 93312; principal; 2023-03-13 10:00)
PROC: 5A2204Z Restoration of Cardiac Rhythm, Single (ICD-10-PCS; CPT 93312; 2023-03-13 10:00)
DX: I48.19 Other persistent atrial fibrillation (principal); I42.9 Cardiomyopathy, unspecified; I10 Essential (primary) hypertension; E11.9 Type 2 diabetes mellitus without complications; E66.01 Morbid (severe) obesity due to excess calories; Z68.31 Body mass index [BMI] 31.0-31.9, adult; Z79.84 Long term (current) use of oral hypoglycemic drugs; Z79.899 Other long term (current) drug therapy; Z87.891 Personal history of nicotine dependence
CPT/HCPCS: 93312; 82947; 92960; 93005; Q9957

== ENCOUNTER → 2023-03-13 08:31 | Outpatient (BNV) | payer BC, SELFPAY | PROVIDERS: PCP Internal Medicine; Visit Provider Internal Medicine | DX: I48.19 Other persistent atrial fibrillation (principal) | CPT/HCPCS: 92960; 93312; 93320; 93325 ==

== ENCOUNTER 2023-03-19 15:07 | Outpatient (AMB) | payer BC, SELFPAY ==
--- NOTE | 2023-03-19 15:29 | AM.OFFVISNUR ---
Intake Intake Visit Reasons: EKG Allergies No Known Allergies Allergy (Verified 03/19/23 15:29) Nursing Note EKG patient on Amiodarone 400 MG BID for 2 weeks. EKG shows sinus bradycardia otherwise normal ECG w/ a heart rate of 56bpm. Patient reports feeling good no complaints. Dr. Rosales reviewed EKG no changes for now patient to follow up in March with Dr. Rosales. Office Procedures EKG [id number], Complete Coding Diagnoses CPT Codes EKG - CPT: 08819-[id number], Complete ([id number])
== END 2023-03-19 15:26 | disposition home or self-care (01) ==
PROVIDERS: PCP Internal Medicine; Referring Provider Internal Medicine; Visit Provider Internal Medicine
DX: R00.1 Bradycardia, unspecified (principal)
CPT/HCPCS: 93010

== ENCOUNTER → 2023-03-19 15:07 | Outpatient (BNVA) | payer BC, SELFPAY | PROVIDERS: PCP Internal Medicine; Referring Provider Internal Medicine; Visit Provider Internal Medicine | DX: R00.1 Bradycardia, unspecified (principal) | CPT/HCPCS: 93005 ==

== ENCOUNTER 2023-04-09 13:09 | Outpatient (AMB) | payer BC, SELFPAY ==
--- NOTE | 2023-04-09 13:18 | A.OFFVIS_ITS ---
Intake Vital Signs 04/09/23 13:20 Height 6 ft 1 in Weight 253 lb 8.505 oz BMI 33.4 BP 120/70 Blood Pressure Location Lt brachial Position Sitting Pulse 73 Intake Visit Reasons: follow up cardioversion Intake Note: follow up Property Disposal Officer Required: No Accompanied by: Self / Same As Patient Allergies No Known Allergies Allergy (Verified 04/09/23 13:21) Medication List - Last Reconciled 04/09/23 by Zafar Rosales MD amiodarone 200 mg PO DAILY atorvastatin 40 mg PO BEDTIME glimepiride 4 mg PO DAILY lisinopril 10 mg PO DAILY metformin 1,000 mg PO DAILY metoprolol tartrate 25 mg PO BID rivaroxaban (Xarelto) 20 mg PO DAILY HPI HPI Comments History of Present Illness Details Jayce returns for follow-up. Few months back, she was seen in consultation regarding atrial fibrillation. He was complaining of symptoms of feeling full in the abdomen extra that might have been from the atrial fibrillation itself. Recently, underwent MARCE/cardioversion. He states that he feels remarkably better after that. He could see a clear difference between when he is in atrial fibrillation versus sinus rhythm. On echocardiogram he also had LV dysfunction/cardiomyopathy. Hence he is being maintained on amiodarone for the time being. On Xarelto for anticoagulation. Otherwise, no documented coronary disease in the past. He is overweight. [facility] Medical History (Updated 04/09/23 @ 13:59 by Zafar Rosales MD) Morbid obesity Hyperlipidemia, unspecified Hypertension Diabetes Surgical History Hx of knee surgery History of surgery on lower extremity Family History Mother HTN (hypertension) Father Diabetes Social History Alcohol intake: current Alcohol intake frequency: holidays/special occasions only Patient Tobacco Use Status: Former Tobacco user Quit Date: 2019 Substance Use Type: Marijuana Review of Systems Const Denies weakness ENT Denies dizziness Card Denies chest pain, Denies chest pain with activity, Denies syncope, Denies rapid heart rate, Denies pedal edema, Denies edema, Denies leg edema, Denies lightheadedness, Denies palpitations, Denies dyspnea, Denies dyspnea on exertion and Denies orthopnea Resp Denies cough, Denies dyspnea and Denies dyspnea on exertion GI Denies hematochezia and Denies change in stool character Musc Denies abnormal gait, Denies muscle cramps, Denies muscle weakness, Denies numbness, Denies radiating pain into limb and Denies tingling Neuro Denies abnormal gait, Denies dizziness, Denies syncope, Denies numbness, Denies tingling and Denies weakness Endo Denies palpitations Physical Exam Vital Signs: Last Vital Signs Pulse 73 04/09/23 13:20 BP 120/70 04/09/23 13:20 BMI result Body Mass Index 33.4 Const General: comfortable and no acute distress Orientation/consciousness: patient oriented x3 HEENT Other: Unremarkable Head: Yes normal to inspection Neck Neck: Yes normal visual inspection Chest Chest palpation & inspection: normal inspection of the chest Resp Auscultation: clear to auscultation bilaterally Cardio Palpation: normal PMI Heart sounds: S1 normal heart sound present, S2 normal heart sound present, no gallops, no murmurs and no rubs GI Palpation (GI): Soft to palpation Back/Spine/Pelvis Other: unremarkable Skin General skin exam: no rashes or lesions noted Neuro General: patient oriented x3 Extrem General: Yes normal to inspection Psych Mental Status: mental status grossly normal Office Procedures EKG Details: EKG with sinus rhythm at 73/Min; no significant ST-T changes and otherwise unremarkable. [place]. [id number], Complete Assessment & Plan Assessment & Plan (1) Persistent atrial fibrillation: Code(s): I48.19 - Other persistent atrial fibrillation (2) Cardiomyopathy: Code(s): I42.9 - Cardiomyopathy, unspecified Qualifiers: Cardiomyopathy type: other Qualified Code(s): I42.8 - Other cardiomyopathies Plan Echocardiogram with LV dysfunction, LVEF in the 30s. Left atrium thought to be moderately dilated. Myocardial perfusion imaging study shows probably normal perfusion. He is now status post cardioversion and remains in sinus rhythm. For the time being, stay on Amiodarone. Discussed regarding atrial fibrillation ablation and he is a reasonable candidate for the same. Will refer to EP for evaluation. If he can be successfully ablated, then probably just keep him on some beta- blockers only. The cardiomyopathy itself is probably from atrial fibrillation with rapid rate and tachycardia induced. We can recheck the echocardiogram as he is back in sinus rhythm. Due to amiodarone use, check TSH. Otherwise, he has got various issues including obesity, diabetes, hypertension, mild FRANCISCO. These will need to be appropriately treated. With regard to the FRANCISCO itself he has been referred pulmonary but he has not followed up. Importance of medication compliance discussed and he understands. Orders: Orders TSH reflex Free T4 Today I48.19 - Other persistent atrial fibrillation CA echo transthoracic complete Today I42.9 - Cardiomyopathy, unspecified Referrals Cardiac Electrophysiology Referral I42.9 - Cardiomyopathy, unspecified, I48.19 - Other persistent atrial fibrillation Medications: Refilled amiodarone 200 mg PO DAILY 90 tabs 1RF Coding Level of Care Code Est Pt Level 4 (97013) Diagnoses Persistent atrial fibrillation I48.19 Other cardiomyopathy I42.8 Cardiomyopathy type: other CPT Codes EKG - CPT: 97159-[id number], Complete ([id number])
[2023-04-09 13:20] VITALS: BP 120/70; PULSE 73; BMI 33.4
== END 2023-04-09 13:49 | disposition home or self-care (01) ==
PROVIDERS: PCP Internal Medicine; Visit Provider Internal Medicine
DX: I48.19 Other persistent atrial fibrillation (principal); I42.8 Other cardiomyopathies
CPT/HCPCS: 93010; 99214

== ENCOUNTER → 2023-04-09 13:09 | Outpatient (BNVA) | payer BC, SELFPAY | PROVIDERS: PCP Internal Medicine; Visit Provider Internal Medicine | DX: I48.19 Other persistent atrial fibrillation (principal); I42.8 Other cardiomyopathies | CPT/HCPCS: 93005 ==

== ENCOUNTER → 2023-06-02 13:04 | Outpatient (REF) | payer BC, SELFPAY ==
--- NOTE | 2023-06-02 13:07 | CA_ITS ---
Transthoracic Echocardiogram Patient (Last, First, Middle): Jayce Johns A Gender: Male Date of : 1975 Age: 47 Procedure Date: 06/02/2023 Procedure Type: Transthoracic Echocardiogram Location: OP Height: 187.96 cm Weight: 115.21 kg BSA: 2.41 m2 Heart Rate: 60 bpm BP: 122 / 60 mmHg Junior Php Developer: KAMAR Referring MD: Zafar Rosales MD Symptoms: I42.9 - Cardiomyopathy, unspecified Study Quality: Fair ECG Rhythm: Sinus Conclusions: - The left ventricular systolic function is normal. The visually estimated ejection fraction is between 55-60%. - No obvious valvular pathology seen on this study. Findings Left Ventricle Normal left ventricular cavity size. There is mildly increased left ventricular wall thickness. The left ventricular systolic function is normal. The visually estimated ejection fraction is between 55-60%. There is no evidence of regional wall motion abnormalities. Diastolic function is normal for age. Right Ventricle Normal right ventricular cavity size and systolic function. Atria Both atria are normal in size. Aortic Valve There is a normal trileaflet aortic valve. There is mild thickening of the aortic valve. There is no aortic valve stenosis. There is trace (trivial) aortic valve regurgitation. Mitral Valve The mitral valve appears normal. There is no mitral valve regurgitation. There is no mitral valve stenosis. Pulmonic Valve The pulmonic valve is likely normal. Tricuspid Valve There is trace tricuspid valve regurgitation. There is no evidence of pulmonary hypertension. Great Vessels The asc aorta is normal in size. Venous The inferior vena cava is normal in size and collapses greater than 50% with inspiration. Pericardium/Pleural There is no evidence of pericardial effusion. Prior Study Comparison Changes noted compared to prior study dated: 03/13/2023. Improved LVEF. Recommendations, Care & Conclusions No obvious valvular pathology seen on this study. Measurements 2D Linear Measurements IVSd: 1.11 0.6-0.9/0.6-1.0 cm LVIDd: 5.53 3.9-5.3/4.2-5.9 cm LVIDd Index: 2.29 2.4-3.2/2.2-3.1 cm/m2 LVIDs: 3.77 2.0-3.6 cm LVPWd: 1.22 0.7-1.1 cm LA Diam: 3.90 2.7-3.8/3.0-4.0 cm LAIDs Index: 1.62 1.5-2.3 cm/m2 LV Mass: 329.13 67-162/88-224 g LV Mass Index: 136.57 43-95/49-115 g/m2 LVOT Diam: 2.50 3.0+(-)1.3 cm 2D Systolic Function EF 4C: 56.80 >55% EF 2C: 63.50 >55% EF BiP: 60.30 >55% Mitral Valve MV Pk E: 0.64 MV PK A: 0.56 MV Decel Time: 211.00 E/A: 1.10 E'Lateral: 10.60 E'Medial: 8.81 E/E' Med: 7.20 E/E' Lat: 6.00 PHT: 62.00 MVA PHT: 3.55 Decel Coke: 3.03 Aortic Valve AoV Pk Romulo: 1.30 AoV Mn Romulo: 0.88 AoV VTI: 0.30 AoV Pk Grad: 7.00 Aov Mn Grad: 4.00 BRADFORD Cont.VTI: 3.74 LVOT LVOT Pk Romulo: 1.06 LVOT Mn Romulo: 0.68 LVOT VTI: 0.23 LVOT Pk Grad: 4.00 LVOT Mn Grad: 2.00 LVOT Diam: 2.50 LVOT Area: 4.91 Diastolic Function MV Pk E: 0.64 MV Pk A: 0.56 E/A: 1.10 E'Medial: 8.81 E/E' Med: 7.20 E' Laterial: 10.60 E/E' Lat: 6.00 Right Ventricle TAPSE (mm): 34.60 TVS' Romulo: 13.60 Tricuspid Valve RA Press: 3.00 Great Vessels Aorta Sinus of Valsalva: 3.90 2.0-3.5 cm Ao Asc: 3.50 2.1-3.4 cm Pulmonary Valve PV Pk Rmoulo: 1.26 Peak PV Grad: 6.00 Updated in Other Vendor System with Status of Final Zafar Rosales MD electronically signed on 06/03/2023 5:06:27 PM with status of Final
== END ==
LOC: HO.CARD 13:04
PROVIDERS: PCP Internal Medicine; Visit Provider Internal Medicine
DX: I42.9 Cardiomyopathy, unspecified (principal)
CPT/HCPCS: 93306

== ENCOUNTER → 2023-06-02 13:07 | Outpatient (BNV) | payer BC, SELFPAY | PROVIDERS: PCP Internal Medicine; Visit Provider Internal Medicine | DX: I35.8 Other nonrheumatic aortic valve disorders (principal) | CPT/HCPCS: 93306 ==

== ENCOUNTER 2023-12-28 10:51 | Outpatient (REF) | payer BC, SELFPAY ==
[2023-12-28 11:10] LABS: MANUAL DIFF FLAG NO
[2023-12-28 11:57] LABS: Basophils Percent Auto 0.2 % (0-2); Eosinophils Absolute Auto 0.1 X10*3/uL (0.0-0.4); Eosinophils Percent Auto 1.4 % (0-4); Hematocrit 38.1 % (42.0-52.0); Hemoglobin 12.1 g/dl (14.0-18.0); Imm Gran Abs Auto 0.01 X10*3/uL (0.00-0.03); Imm Gran Pct Auto 0.2 % (0.0-0.4); Lymphocytes Absolute Auto 1.3 X10*3/uL (1.2-4.9); Lymphocytes Percent Auto 24.1 % (20-40); Mean Corpuscular HGB Conc 31.8 g/dl (31.0-36.0); Mean Corpuscular Hemoglobin 28.9 pg (27.0-33.0); Mean Corpuscular Volume 90.9 fL (80.0-98.0); Mean Platelet Volume 9.3 fL (9.4-12.4); Monocytes Absolute Auto 0.5 X10*3/uL (0.1-1.2); Monocytes Percent Auto 10.4 % (2-11); Neutrophils Absolute Auto 3.3 x10*3/uL (2.0-8.3); Neutrophils Percent Auto 63.7 % (45-73); Platelet Count 275 X10*3/uL (160-400); Red Blood Count 4.19 X10*6/uL (4.60-5.80); White Blood Count 5.2 X10*3/uL (4.8-10.8)
[2023-12-28 12:06] LABS: Estimated Average Glucose 258 mg/dL; Hemoglobin A1c % 10.6 % (<6.0)
[2023-12-28 12:45] LABS: Alanine Aminotransferase 15 U/L (0-40); Albumin Level 3.9 g/dL (3.5-5.0); Alkaline Phosphatase 75 U/L (39-117); Anion Gap 7 (12-20); Aspartate Amino Transferase 16 U/L (5-37); Bilirubin Total 0.4 mg/dL (0.0-1.0); Blood Urea Nitrogen 16 mg/dL (9-16); Calcium 9.5 mg/dL (8.4-10.2); Carbon Dioxide 30 mmol/L (22-29); Chloride 104 mmol/L (96-108); Cholesterol 193 mg/dL (<200); Estimated Glomerular Filt Rate > 60; Glucose Random 201 mg/dL (60-115); HDL Cholesterol 56 mg/dL (>40); LDL Cholesterol Calculated 120 mg/dL (<100); Potassium 4.3 mmol/L (3.3-5.1); Sodium 137 mmol/L (135-145); Total Protein 7.2 g/dL (6.5-8.0); Triglycerides 85 mg/dL (<150)
[2023-12-28 12:56] LABS: Creatinine Urine 153.13 mg/dL; Microalbum/Creatinine Ratio Ur 68.5 ug/mg cr (<30)
[2023-12-28 13:10] LABS: Vitamin B12 471 pg/mL (200-900)
== END 2023-12-28 10:52 | disposition home or self-care (01) ==
LOC: HO.LAB 10:51
PROVIDERS: PCP Internal Medicine; Visit Provider Internal Medicine
DX: Z00.01 Encounter for general adult medical examination with abnormal findings (principal); E11.65 Type 2 diabetes mellitus with hyperglycemia; E78.00 Pure hypercholesterolemia, unspecified; R80.0 Isolated proteinuria; Z79.01 Long term (current) use of anticoagulants; Z91.199 Patient's noncompliance with other medical treatment and regimen due to unspecified reason
CPT/HCPCS: 36415; 80053; 80061; 82043; 82570; 82607; 83036; 85025

== ENCOUNTER 2024-04-03 03:03 | Emergency (ER) | payer BC, SELFPAY ==
--- NOTE | ~2024-04-03 | CT_ITS ---
EXAMINATION: NONCONTRAST HEAD CT NONCONTRAST CERVICAL SPINE CT INDICATION INFORMATION: Fall, head strike COMPARISON: None TECHNIQUE: Separate noncontrast CT examinations of the head and cervical spine were performed. Coronal head CT images and coronal and sagittal cervical spine images were created at the technologist workstation. DLP: 1577 mGy-cm DOSE LOWERING TECHNIQUES: This CT examination was performed using dose optimization techniques as appropriate, variously including the following: - Automated exposure control - Adjustment of mA and/or kV according to patient size (this includes techniques or standardized protocols for targeted exams were dose is matched to indication/reason for exam; i.e. extremities or head) - Use of iterative reconstruction technique FINDINGS: Head: There is no evidence of acute intracranial hemorrhage or territorial infarction. No abnormal mass-effect or midline shift is seen. Robison to white matter differentiation is well preserved. No extra-axial fluid collections are identified. The ventricles are normal in size. There is no abnormal attenuation within the brain parenchyma. The osseous structures and soft tissues are normal. The mastoid air cells and visualized portions of the paranasal sinuses are well-aerated. Cervical spine: There is anatomic alignment of the vertebral bodies and posterior elements. There is chronic appearing degenerative change at the atlantodens articulation along with calcifications superior to the dens which appear well-corticated, favoring a chronic finding. Vertebral body heights are maintained. Mild multilevel disc space narrowing along with scattered osteophytes. C2-C3 facet arthropathy appears more severe on the left where there is ankylosis. No evidence of acute fracture. No prevertebral soft tissue swelling. Visualized portions of the lung apices are unremarkable. The thyroid gland is unremarkable. CT/CT cervical spine wo IV con IMPRESSION: HEAD: No acute intracranial findings. CERVICAL SPINE: No acute findings identified. Chronic appearing and degenerative changes as noted above. Electronically signed by: Ez Rachel MD 04/03/2024 05:37 AM EDT RP
[2024-04-03 03:11] VITALS: BP 128/92; PULSE 80; O2SAT 98
[2024-04-03 03:15] VITALS: BP 111/57; PULSE 75; RESP 18; TEMP 36.6; O2SAT 96; BMI 34.3
--- NOTE | 2024-04-03 03:33 | ED.HEATRA ---
HPI - Head Injury General Chief complaint: Head Injury Stated complaint: FALL AT BAR Time Seen by Provider: 04/03/24 03:33 Source: patient Mode of arrival: EMS Limitations: no limitations History of Present Illness ED Provider: j luis MARQUEZ Narrative: Patient's history of atrial fibrillation on amiodarone and Xarelto was in the bar had few drink suddenly felt lightheaded and passed out getting it top of the head to the wall sat down no chest pain no palpitation no nausea no vomiting no seizures Related Data Home Medications ?Medication ?Instructions ?Recorded ?Confirmed atorvastatin 40 mg tablet 40 mg PO BEDTIME 09/25/22 04/09/23 glimepiride 4 mg tablet 4 mg PO DAILY 09/25/22 04/09/23 lisinopril 10 mg tablet 10 mg PO DAILY 09/25/22 04/09/23 metformin 1,000 mg tablet 1,000 mg PO DAILY 09/25/22 04/09/23 Previous Rx's ?Medication ?Instructions ?Recorded rivaroxaban 20 mg tablet (Xarelto) 20 mg PO QPM #30 tabs 06/01/23 amiodarone 200 mg tablet 200 mg PO DAILY #30 tabs 10/07/23 metoprolol succinate 50 mg 50 mg PO DAILY #30 tabs 10/07/23 tablet,extended release 24 hr Allergies Allergy/AdvReac Type Severity Reaction Status Date / Time No Known Allergies Allergy Verified 04/03/24 03:18 Review of Systems Review of Systems: Yes all other systems are reviewed and are negative PMFSH Past Medical History Medical History Morbid obesity Hyperlipidemia, unspecified Hypertension Diabetes Surgical History Hx of knee surgery History of surgery on lower extremity Family History Family History Mother HTN (hypertension) Father Diabetes Social History Social History Alcohol intake: current Alcohol intake frequency: holidays/special occasions only Patient Tobacco Use Status: Former Tobacco user Substance Use Type: Marijuana Advance Directives: No Advance Directives Information Provided: No Do you have a plan to hurt others: No Plan Physical Exam Vital Signs: Vital Signs: Last Vital Signs Temp 97.9 F 04/03/24 03:15 Pulse 75 04/03/24 03:15 Resp 18 04/03/24 03:15 BP 111/57 L 04/03/24 03:15 Pulse Ox 96 04/03/24 03:15 O2 Del Method Room Air 04/03/24 03:15 BMI result Body Mass Index 34.3 Appearance: Alert. Oriented X3. No acute distress. Eyes: PERRLA, No Nystagmus HEENT: Pharynx normal. Oral Mucosa moistsoft tissue swelling on the top of the head Neck: Normal inspection. Neck supple. No midline tenderness CVS: Normal heart rate and rhythm. Pulses normal. Respiratory: No respiratory distress. Equal air entry bilateral, no wheezing/rales/rhonchi Abdomen: Soft and nontender. Bowel sounds are present, no mass palpable, no CVA tenderness Skin: Skin warm and dry. Normal skin color. Normal skin turgor. Extremities: No lower extremity edema. No calf tenderness Neuro: Oriented X 3. No motor deficit. No sensory deficit.No cerebellar signs , cranial nerves II-XII intact Medical Decision Making Medical Decision Making [facility] Narrative: Patient with syncope episode likely from drinking/vasovagal cardiac workup is negative sinus rhythm CT scan of the head and C-spine negative discharge patient home patient ambulatory in steady gait Differential Diagnosis Differential Diagnoses: The differential diagnosis associated with the presentation includes Atrial fibrillation/vasovagal/alcohol induced/orthostatic Lab Data [facility] Lab Attestation statement: I reviewed the patient's lab results. 04/03/24 03:57 04/03/24 03:57 Labs: Lab Results 04/03/24 Range/Units 03:57 WBC 5.9 (4.8-10.8) X10*3/uL RBC 3.85 L (4.60-5.80) X10*6/uL Hgb 11.2 L (14.0-18.0) g/dl Hct 33.7 L (42.0-52.0) % MCV 87.5 (80.0-98.0) fL MCH 29.1 (27.0-33.0) pg MCHC 33.2 (31.0-36.0) g/dl RDW 14.0 (11.0-16.0) % Plt Count 273 (160-400) X10*3/uL MPV 9.0 L (9.4-12.4) fL Immature Gran % (Auto) 0.8 H (0.0-0.4) % Neut % (Auto) 59.7 (45-73) % Lymph % (Auto) 28.9 (20-40) % Mason % (Auto) 8.8 (2-11) % Eos % (Auto) 1.5 (0-4) % Baso % (Auto) 0.3 (0-2) % Lymph # (Auto) 1.7 (1.2-4.9) X10*3/uL Mason # (Auto) 0.5 (0.1-1.2) X10*3/uL Eos # (Auto) 0.1 (0.0-0.4) X10*3/uL Baso # (Auto) 0.0 (0.0-0.2) X10*3/uL Abs Immat Gran (auto) 0.05 H (0.00-0.03) X10*3/uL Absolute Neuts (auto) 3.5 (2.0-8.3) x10*3/uL Absolute Nucleated RBC 0.000 (0.0-0.012) X10*3/uL Nucleated RBC % (auto) 0.0 (0.0-0.2) /100WBC Sodium 136 (135-145) mmol/L Potassium 4.0 (3.3-5.1) mmol/L Chloride 102 (96-108) mmol/L Carbon Dioxide 24 (22-29) mmol/L Anion Gap 14 (12-20) BUN 15 (9-16) mg/dL Creatinine 1.37 (0.5-1.4) mg/dL Estim Creat Clear Calc 87.7 Estimated GFR 55 Random Glucose 233 H (60-115) mg/dL Calcium 9.1 (8.4-10.2) mg/dL Total Bilirubin 0.4 (0.0-1.0) mg/dL AST 19 (5-37) U/L ALT 17 (0-40) U/L Alkaline Phosphatase 71 (39-117) U/L Troponin I High Sens < 2.7 D (<3.5-35.0) ng/L Total Protein 7.0 (6.5-8.0) g/dL Albumin 3.9 (3.5-5.0) g/dL Independent Interpretation I performed an independent interpretation of an: EKG and CT Scan Interpretation: Normal sinus rhythm heart rate 72 beats per minute normal interval normal axis no acute ST T wave changes no acute ischemia Radiology Impression Discussion of test interpretation with radiology: I have reviewed the radiologist's reading. Discharge Plan Discharge Clinical Impression: Closed head injury, Near syncope Patient Disposition: Home, Self-Care Instructions: Syncope (ED), Head Injury (ED) Additional Instructions: Cause of your passing out episode is not clear likely from alcohol use/vasovagal Continue medication as prescribed Your CT scan is negative for acute bleed or fracture Prescriptions: No Action Xarelto 20 mg tablet 20 mg PO QPM Qty: 30 7RF amiodarone 200 mg tablet 200 mg PO DAILY Qty: 30 10RF metoprolol succinate 50 mg tablet extended release 24 hr 50 mg PO DAILY Qty: 30 10RF lisinopril 10 mg tablet 10 mg PO DAILY glimepiride 4 mg tablet 4 mg PO DAILY atorvastatin 40 mg tablet 40 mg PO BEDTIME metformin 1,000 mg tablet 1,000 mg PO DAILY Print Language: Jamaican
--- NOTE | 2024-04-03 03:38 | ECG_ITS ---
Test Reason : AFIB Blood Pressure : / mmHG Vent. Rate : 072 BPM Atrial Rate : 072 BPM P-R Int : 174 ms QRS Dur : 096 ms QT Int : 378 ms P-R-T Axes : 033 054 058 degrees QTc Int : 413 ms Normal sinus rhythm Normal ECG When compared with ECG of 13-MAR-2023 11:16, No significant change was found Referred By: Per Antunez Electronically Signed By:DELFIN NOYOLA
[2024-04-03 04:07] LABS: MANUAL DIFF FLAG NO
[2024-04-03 04:09] LABS: Basophils Percent Auto 0.3 % (0-2); Eosinophils Absolute Auto 0.1 X10*3/uL (0.0-0.4); Eosinophils Percent Auto 1.5 % (0-4); Hematocrit 33.7 % (42.0-52.0); Hemoglobin 11.2 g/dl (14.0-18.0); Imm Gran Abs Auto 0.05 X10*3/uL (0.00-0.03); Imm Gran Pct Auto 0.8 % (0.0-0.4); Lymphocytes Absolute Auto 1.7 X10*3/uL (1.2-4.9); Lymphocytes Percent Auto 28.9 % (20-40); Mean Corpuscular HGB Conc 33.2 g/dl (31.0-36.0); Mean Corpuscular Hemoglobin 29.1 pg (27.0-33.0); Mean Corpuscular Volume 87.5 fL (80.0-98.0); Monocytes Absolute Auto 0.5 X10*3/uL (0.1-1.2); Monocytes Percent Auto 8.8 % (2-11); Neutrophils Absolute Auto 3.5 x10*3/uL (2.0-8.3); Neutrophils Percent Auto 59.7 % (45-73); Platelet Count 273 X10*3/uL (160-400); Red Blood Count 3.85 X10*6/uL (4.60-5.80); White Blood Count 5.9 X10*3/uL (4.8-10.8)
[2024-04-03 04:20] LABS: Alanine Aminotransferase 17 U/L (0-40); Albumin Level 3.9 g/dL (3.5-5.0); Alkaline Phosphatase 71 U/L (39-117); Anion Gap 14 (12-20); Aspartate Amino Transferase 19 U/L (5-37); Bilirubin Total 0.4 mg/dL (0.0-1.0); Blood Urea Nitrogen 15 mg/dL (9-16); Calcium 9.1 mg/dL (8.4-10.2); Carbon Dioxide 24 mmol/L (22-29); Chloride 102 mmol/L (96-108); Creatinine Clr Calc Pharmacy 87.7; Estimated Glomerular Filt Rate 55; Glucose Random 233 mg/dL (60-115); Sodium 136 mmol/L (135-145)
[2024-04-03 04:27] LABS: Troponin-I High Sensitivity < 2.7 ng/L (<3.5-35.0)
[2024-04-03] MEDS: Acetaminophen 325 MG TABLET 650 MG PO (06:25)
--- NOTE | 2024-04-03 06:25 | PC.NURSE ---
MD aware of pt pain level. medicated per sep.
[2024-04-03 06:47] VITALS: BP 111/57; PULSE 75; RESP 18; TEMP 36.6; O2SAT 96
== END 2024-04-03 06:47 | disposition home or self-care (01) ==
PROVIDERS: Emergency Provider Internal Medicine; PCP Internal Medicine
DX: S09.90XA Unspecified injury of head, initial encounter (principal); R55 Syncope and collapse; R51.9 Headache, unspecified; M54.2 Cervicalgia; I48.91 Unspecified atrial fibrillation; W18.30XA Fall on same level, unspecified, initial encounter; Y93.89 Activity, other specified; Y92.59 Other trade areas as the place of occurrence of the external cause; Y99.8 Other external cause status; Z79.899 Other long term (current) drug therapy; Z79.01 Long term (current) use of anticoagulants
CPT/HCPCS: 36415; 70450; 72125; 80053; 84484; 85025; 93005; 99284

== ENCOUNTER 2024-04-12 06:50 | Outpatient (REF) | payer BC, SELFPAY ==
[2024-04-12 07:07] LABS: MANUAL DIFF FLAG NO
[2024-04-12 07:44] LABS: Basophils Percent Auto 0.6 % (0-2); Eosinophils Absolute Auto 0.1 X10*3/uL (0.0-0.4); Eosinophils Percent Auto 1.1 % (0-4); Hematocrit 35.6 % (42.0-52.0); Hemoglobin 11.6 g/dl (14.0-18.0); Imm Gran Abs Auto 0.02 X10*3/uL (0.00-0.03); Imm Gran Pct Auto 0.3 % (0.0-0.4); Lymphocytes Absolute Auto 1.7 X10*3/uL (1.2-4.9); Lymphocytes Percent Auto 25.1 % (20-40); Mean Corpuscular HGB Conc 32.6 g/dl (31.0-36.0); Mean Corpuscular Hemoglobin 28.6 pg (27.0-33.0); Mean Corpuscular Volume 87.9 fL (80.0-98.0); Mean Platelet Volume 9.4 fL (9.4-12.4); Monocytes Absolute Auto 0.8 X10*3/uL (0.1-1.2); Monocytes Percent Auto 11.5 % (2-11); Neutrophils Absolute Auto 4.1 x10*3/uL (2.0-8.3); Neutrophils Percent Auto 61.4 % (45-73); Platelet Count 322 X10*3/uL (160-400); Red Blood Count 4.05 X10*6/uL (4.60-5.80); Red Cell Distribution Width 13.9 % (11.0-16.0); White Blood Count 6.6 X10*3/uL (4.8-10.8)
[2024-04-12 08:05] LABS: Estimated Average Glucose 214 mg/dL; Hemoglobin A1c % 9.1 % (<6.0)
[2024-04-12 08:33] LABS: Alanine Aminotransferase 15 U/L (0-40); Albumin Level 4.1 g/dL (3.5-5.0); Alkaline Phosphatase 81 U/L (39-117); Anion Gap 12 (12-20); Aspartate Amino Transferase 19 U/L (5-37); Bilirubin Total 0.5 mg/dL (0.0-1.0); Blood Urea Nitrogen 13 mg/dL (9-16); Calcium 9.9 mg/dL (8.4-10.2); Carbon Dioxide 26 mmol/L (22-29); Chloride 104 mmol/L (96-108); Cholesterol 125 mg/dL (<200); Estimated Glomerular Filt Rate > 60; Glucose Random 129 mg/dL (60-115); HDL Cholesterol 44 mg/dL (>40); LDL Cholesterol Calculated 68 mg/dL (<100); Potassium 4.1 mmol/L (3.3-5.1); Sodium 138 mmol/L (135-145); Total Protein 7.6 g/dL (6.5-8.0); Triglycerides 69 mg/dL (<150)
[2024-04-12 08:50] LABS: Ferritin 212 ng/mL (20-250)
== END 2024-04-12 06:51 | disposition home or self-care (01) ==
LOC: HO.LAB 06:50
PROVIDERS: PCP Internal Medicine; Visit Provider Internal Medicine
DX: E11.65 Type 2 diabetes mellitus with hyperglycemia (principal); E78.00 Pure hypercholesterolemia, unspecified; I10 Essential (primary) hypertension; R80.0 Isolated proteinuria
CPT/HCPCS: 36415; 80053; 80061; 82728; 83036; 85025

== ENCOUNTER 2024-04-18 14:52 | Outpatient (AMB) | payer BC, SELFPAY ==
[2024-04-18 14:54] VITALS: BP 108/62; PULSE 70; BMI 33.1
--- NOTE | 2024-04-18 14:54 | A.OFFVIS_ITS ---
Vital Signs 04/18/24 14:54 Height 6 ft 1 in Weight 250 lb 14.177 oz BMI 33.1 BP 108/62 Blood Pressure Location Lt brachial Position Sitting Pulse 70 Pulse Source Monitor Intake Visit Reasons: Follow up/Passing out/Heart check Plate Cutter Required: No Allergies No Known Allergies Allergy (Verified 04/18/24 14:59) Medication List - Last Reconciled 04/18/24 by Yvette Kelly NP-C atorvastatin 40 mg PO BEDTIME glimepiride 4 mg PO DAILY lisinopril 10 mg PO DAILY metformin 1,000 mg PO DAILY metoprolol succinate ER 50 mg PO DAILY rivaroxaban (Xarelto) 20 mg PO QPM HPI HPI Follow up/Passing out/Heart check: Details: Jayce is a 48-year-old male with past medical history of diabetes, hypertension, cardiomyopathy, atrial fibrillation status post ablation who recently had a syncopal event requiring ER evaluation. He had no significant findings at that time. He was referred back to Cardiology in follow-up. Today he reports that he has not been feeling well for the last 6 months. He said he had his AFib ablation earlier this year and around that time he started having some GI issues including bloating and reflux. He has vague discomfort in the epigastric area that occurs periodically without clear pattern. Has no chest area discomfort at rest or with exertion. He has been noticing increasing shortness of breath with exertion such as walking up inclines and when he works. 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 He denies a history of syncope in the past. He did have a recent syncopal event while in a bar. He tells me he had 3 beers then the next thing he recalls he was on the floor, sweating. He did sustain a bump to his head. EMS was called and he was taken to the ER at that time. He has not had any recurrent events. He reports compliance with his medications. He is no longer on amiodarone. He takes his Xarelto and has no signs of bleeding. [facility] Medical History Morbid obesity Hyperlipidemia, unspecified Hypertension Diabetes Surgical History Hx of knee surgery History of surgery on lower extremity Family History Mother HTN (hypertension) Father Diabetes Social History Alcohol intake: current Alcohol intake frequency: holidays/special occasions only Patient Tobacco Use Status: Former Tobacco user Substance Use Type: Marijuana Review of Systems Const Details: one episode of syncope All systems reviewed & are unremarkable except as noted in HPI and below ENT Denies dizziness Card Details: epigastric discomfort/ bloated feeling - reflux. No chest area discomfort Denies chest pain, Denies chest pain at rest, Denies chest pain with activity, Denies rapid heart rate, Denies pedal edema, Denies edema, Denies leg edema, Denies lightheadedness, Denies palpitations, Reports dyspnea, Reports dyspnea on exertion and Denies orthopnea Resp Denies cough, Reports dyspnea and Reports dyspnea on exertion GI Denies hematochezia and Denies change in stool character Musc Denies abnormal gait, Denies limited range of motion, Denies muscle cramps, Denies muscle weakness, Denies numbness, Denies radiating pain into limb, Denies stiffness and Denies tingling Neuro Denies abnormal gait, Denies dizziness, Denies numbness and Denies tingling Endo Denies palpitations Physical Exam Vital Signs: Last Vital Signs Pulse 70 04/18/24 14:54 BP 108/62 04/18/24 14:54 BMI result Body Mass Index 33.1 Const General: cooperative, healthy appearing, comfortable and no acute distress Orientation/consciousness: patient oriented x3 Neck Neck: Yes normal visual inspection Resp Effort & Inspection: normal respiratory effort Auscultation: clear to auscultation bilaterally, no crackles, no rales, no rhonchi and no wheezes Cardio Rate: regular rate Rhythm: regular rhythm Heart sounds: S1 normal heart sound present, S2 normal heart sound present, no murmurs and no rubs Neuro General: patient oriented x3 Extrem General: Yes normal to inspection Psych Appearance: grossly normal Mental Status: mental status grossly normal Speech and movement: Normal speech and movement present Office Procedures EKG Details: Today, read by me, normal sinus rhythm, septal Q-wave, rate 70, QTC 395 milliseconds [id number], Complete Assessment & Plan Assessment & Plan (1) Syncope: Code(s): R55 - Syncope and collapse Category: Medical Plan: Episode of syncope that occurred in a bar after drinking 3 alcoholic beverages which he says is not unusual for him. He does not recall clear symptoms prior to the event. He remembers waking up on the floor and someone had a cool cloth on his forehead. He has never had syncope in the past. ER evaluation completed without acute findings. EKG done today showing normal sinus rhythm, septal Q- wave which could be related to lead placement, rate 70. He did have a nuclear stress test 1.5 years ago which was normal. His last echo was 06/02/2023 showing EF 55-60%. Prior echo in September 2022 showed EF 30-35%. His reduced EF was thought to be tachycardia mediated. At this time will update his cardiac testing including echocardiogram, nuclear stress test and Holter monitor. His syncope may have been vasovagal in nature. Discussed need for limiting alcohol use, maintaining good hydration, recognizing symptoms and sit/lay down if presyncopal. Emergency care if needed for symptoms. Cardiology follow-up 2-3 months, sooner if needed. Plan to call him with test results as they come in. (2) Persistent atrial fibrillation: Code(s): I48.19 - Other persistent atrial fibrillation Category: Medical Plan: History of persistent atrial fibrillation status post cardioversion. He had been on amiodarone and did undergo an AFib ablation earlier this year. Says he has not had any known recurrent atrial fibrillation since that time. He is no longer on amiodarone. He is on metoprolol XL 50 mg daily for rate control and Xarelto 20 mg daily for anticoagulation. No bleeding issues reported. Following his syncope a CT scan of the head showed no acute findings. EKG today shows sinus rhythm. Checking Holter due to syncope as above. No med changes made. (3) Cardiomyopathy: Code(s): I42.9 - Cardiomyopathy, unspecified Category: Medical Qualifiers: Cardiomyopathy type: other Qualified Code(s): I42.8 - Other cardiomyopathies Plan: As above. Does not appear fluid overloaded on exam. (4) Shortness of breath: Code(s): R06.02 - Shortness of breath Category: Medical Plan: Reports of shortness of breath with activity that he feels is worse in the last year. Will be checking nuclear stress test and echo as above. (5) Hospital discharge follow-up: Code(s): Z09 - Encounter for follow-up examination after completed treatment for conditions other than malignant neoplasm Category: Medical Plan: As above Orders: Orders CA stress test Today I42.8 - Other cardiomyopathies, R06.02 - Shortness of breath, R55 - Syncope and collapse NM cardiolite stress test Today I42.8 - Other cardiomyopathies, R06.02 - Shortness of breath, R55 - Syncope and collapse CA echo transthoracic complete Today I42.8 - Other cardiomyopathies, R06.02 - Shortness of breath, R55 - Syncope and collapse ECG 3 day holter monitor Today R55 - Syncope and collapse Coding Level of Care Code Est Pt Level 4 (50256) Diagnoses Syncope R55 Persistent atrial fibrillation I48.19 Other cardiomyopathy I42.8 Cardiomyopathy type: other Shortness of breath R06.02 Hospital discharge follow-up Z09 CPT Codes EKG - CPT: 47685-[id number], Complete ([id number]) Time Spent (min) 32
== END 2024-04-18 15:24 | disposition home or self-care (01) ==
PROVIDERS: PCP Internal Medicine; Visit Provider Nurse Practitioner Family
DX: R55 Syncope and collapse (principal); I48.19 Other persistent atrial fibrillation; I42.8 Other cardiomyopathies; R06.02 Shortness of breath; Z09 Encounter for follow-up examination after completed treatment for conditions other than malignant neoplasm
CPT/HCPCS: 93010; 99214

== ENCOUNTER → 2024-04-18 14:52 | Outpatient (BNVA) | payer BC, SELFPAY | PROVIDERS: PCP Internal Medicine; Visit Provider Nurse Practitioner Family | DX: R55 Syncope and collapse (principal); I48.19 Other persistent atrial fibrillation; I42.8 Other cardiomyopathies; R06.02 Shortness of breath; Z79.01 Long term (current) use of anticoagulants; Z79.899 Other long term (current) drug therapy | CPT/HCPCS: 93005 ==

== ENCOUNTER → 2024-05-12 14:05 | Outpatient (REF) | payer BC, SELFPAY ==
--- NOTE | 2024-05-12 14:08 | CA_ITS ---
Transthoracic Echocardiogram Patient (Last, First, Middle): Jayce Johns A Gender: Male Date of : 1975 Age: 48 Procedure Date: 05/12/2024 Procedure Type: Transthoracic Echocardiogram Location: OP Height: 185.42 cm Weight: 113.4 kg BSA: 2.37 m2 Heart Rate: bpm BP: 110 / 50 mmHg Defect Cutter: [email or web address] Referring MD: Yvette Kelly [employer]AND[facility] FACILITATORAddy Symptoms: R55 - Syncope and collapse Study Quality: Fair ECG Rhythm: Sinus Conclusions: - The left ventricular systolic function is normal. The calculated ejection fraction is 61% by biplane method. - No obvious valvular pathology seen on this study. Findings Left Ventricle Normal left ventricular cavity size. There is normal left ventricular wall thickness. The left ventricular systolic function is normal. The calculated ejection fraction is 61% by biplane method. There is no evidence of regional wall motion abnormalities. Diastolic function is normal for age. Right Ventricle Normal right ventricular cavity size and systolic function. Atria Both atria are normal in size. Aortic Valve There is a normal trileaflet aortic valve. There is mild calcification of the aortic valve. There is no aortic valve stenosis. There is no aortic valve regurgitation. Mitral Valve The mitral valve appears normal. There is no mitral valve regurgitation. There is no mitral valve stenosis. Pulmonic Valve The pulmonic valve is likely normal. Tricuspid Valve There is trace tricuspid valve regurgitation. There is no evidence of pulmonary hypertension. Great Vessels The asc aorta is normal in size. Venous The inferior vena cava is normal in size and collapses greater than 50% with inspiration. Pericardium/Pleural There is no evidence of pericardial effusion. Prior Study Comparison No significant change compared to prior study dated: 06/02/2023. Recommendations, Care & Conclusions No obvious valvular pathology seen on this study. Measurements 2D Linear Measurements IVSd: 0.81 0.6-0.9/0.6-1.0 cm LVIDd: 5.87 3.9-5.3/4.2-5.9 cm LVIDd Index: 2.48 2.4-3.2/2.2-3.1 cm/m2 LVIDs: 3.67 2.0-3.6 cm LVPWd: 0.95 0.7-1.1 cm LA Diam: 3.50 2.7-3.8/3.0-4.0 cm LAIDs Index: 1.48 1.5-2.3 cm/m2 LV Mass: 252.34 67-162/88-224 g LV Mass Index: 106.47 43-95/49-115 g/m2 LVOT Diam: 2.50 3.0+(-)1.3 cm 2D Systolic Function EF 4C: 64.20 >55% EF 2C: 61.70 >55% EF BiP: 61.30 >55% Mitral Valve MV Pk E: 0.77 MV PK A: 0.57 MV Decel Time: 234.00 E/A: 1.30 E'Lateral: 10.70 E'Medial: 9.03 E/E' Med: 8.50 E/E' Lat: 7.20 PHT: 68.00 MVA PHT: 3.24 Decel Laurel: 3.28 Aortic Valve AoV Pk Romulo: 1.43 AoV Mn Romulo: 1.01 AoV VTI: 0.31 AoV Pk Grad: 8.00 Aov Mn Grad: 4.00 BRAD[place]ORD Cont.VTI: 3.33 LVOT LVOT Pk Romulo: 0.92 LVOT Mn Romulo: 0.64 LVOT VTI: 0.21 LVOT Pk Grad: 3.00 LVOT Mn Grad: 2.00 LVOT Diam: 2.50 LVOT Area: 4.91 Diastolic Function MV Pk E: 0.77 MV Pk A: 0.57 E/A: 1.30 E'Medial: 9.03 E/E' Med: 8.50 E' Laterial: 10.70 E/E' Lat: 7.20 Right Ventricle TAPSE (mm): 30.60 TVS' Romulo: 12.80 Tricuspid Valve TR Pk Romulo: 1.94 TR Pk Grad: 15.00 RA Press: 3.00 RVSP: 18.00 Great Vessels Aorta Sinus of Valsalva: 3.54 2.0-3.[address] Ridge: 2.55 1.7-3.4 cm Ao Asc: 3.20 2.1-3.4 cm Updated in Other Vendor System with Status of Final Zafar Rosales MD electronically signed on 05/12/2024 4:27:41 PM with status of Final
--- NOTE | 2024-05-12 14:08 | HM_ITS ---
Conclusion: 1. Patient was monitored for total period of 3 days 2. Baseline was normal sinus rhythm with average heart of 80 beats per minute 3. Occasional PACs noted 4. Patient did not report any events MTDD
== END ==
LOC: HO.CARD 14:05
PROVIDERS: PCP Internal Medicine; Visit Provider Nurse Practitioner Family
DX: R06.02 Shortness of breath (principal); I42.8 Other cardiomyopathies; R55 Syncope and collapse
CPT/HCPCS: 93242; 93306

== ENCOUNTER → 2024-05-12 14:08 | Outpatient (BNV) | payer BC, SELFPAY | PROVIDERS: PCP Internal Medicine; Visit Provider Internal Medicine | DX: I49.1 Atrial premature depolarization (principal) | CPT/HCPCS: 93244; 93306 ==

== ENCOUNTER 2024-06-08 08:25 | Emergency (ER) | payer MEDICAID, SELFPAY ==
--- NOTE | ~2024-06-08 | XR_ITS ---
EXAMINATION: XR HIP, LEFT CLINICAL INFORMATION: pain COMPARISON: None available. TECHNIQUE: Frontal radiograph of the pelvis and frontal and frog lateral radiographs of the left hip. FINDINGS: No fracture, subluxation or suspicious bony lesion is evident in the pelvis or left hip. Mild bilateral joint space narrowing of the hips is present. No significant erosive or proliferative changes are detected. XR/XR hip LT w PEL1V IMPRESSION: Mild bilateral hip joint space narrowing. Electronically signed by: Xavi Piper MD 06/08/2024 10:20 AM [facility]
--- NOTE | ~2024-06-08 | XR_ITS ---
EXAMINATION: XR LUMBOSACRAL SPINE CLINICAL INFORMATION: back pain COMPARISON: None available. TECHNIQUE: Three views of the lumbosacral spine. FINDINGS: The vertebral bodies and posterior elements are normal. The disc spaces are preserved and the vertebral alignment is normal. The paraspinal soft tissues are normal. XR/XR lumbar spine 2-3V IMPRESSION: Unremarkable plain radiographs of the lumbar spine. Electronically signed by: Xavi Piper MD 06/08/2024 10:22 AM [facility]
[2024-06-08 08:29] VITALS: BP 123/58; PULSE 70; RESP 18; TEMP 36.3; O2SAT 99; BMI 33.3
--- NOTE | 2024-06-08 09:36 | ED.BACK ---
HPI - Back Pain/Injury General Chief Complaint: Back Pain/Injury Stated Complaint: Sciatic pain Time Seen by Provider: 06/08/24 09:13 Source: patient and RN notes reviewed Mode of arrival: ambulatory Limitations: no limitations History of Present Illness ED Provider: Hilary Torres PA-C HPI Narrative: This is a 49-year-old male, with a history of diabetes, hypertension, cardiomyopathy, atrial fibrillation status post ablation on Xarelto, who presents emergency department with complaints of left low back pain for several weeks, worsening over the last several days. Patient denies any known trauma or injury. He states that he has had this pain radiating into his left buttocks and down his left leg. He states that the pain has worsened over the last several days. Denies history of sciatica or any back problems in the past. He states that he took a dose of Naprosyn which provided him with minimal relief. He is aware that he is not supposed to take Naprosyn while on Xarelto. Denies any fevers, chills, chest pain, shortness breath, abdominal pain, nausea, vomiting or diarrhea. No saddle anesthesia. No urinary or bowel incontinence. Denies history of IVDA. No profound night sweats, no changes in weight. No other complaints or concerns at this time. Timing: constant Quality: aching Radiation: none Exacerbating factors: movement Relieving factors: none Associated symptoms: denies other symptoms Related Data Home Medications ?Medication ?Instructions ?Recorded ?Confirmed atorvastatin 40 mg tablet 40 mg PO BEDTIME 09/25/22 04/18/24 glimepiride 4 mg tablet 4 mg PO DAILY 09/25/22 04/18/24 lisinopril 10 mg tablet 10 mg PO DAILY 09/25/22 04/18/24 metformin 1,000 mg tablet 1,000 mg PO DAILY 09/25/22 04/18/24 Previous Rx's ?Medication ?Instructions ?Recorded rivaroxaban 20 mg tablet (Xarelto) 20 mg PO QPM #30 tabs 06/01/23 metoprolol succinate 50 mg 50 mg PO DAILY #30 tabs 10/07/23 tablet,extended release 24 hr acetaminophen 500 mg tablet 500 mg PO Q6H PRN pain #30 tabs 06/08/24 (Tylenol Extra Strength) lidocaine 5 % topical patch 1 patch topical DAILY #30 ea 06/08/24 (Lidoderm) methocarbamol 750 mg tablet 750 mg PO TID 3 days #9 tabs 06/08/24 prednisone 20 mg tablet 40 mg (2 x 20 mg) PO DAILY 5 days 06/08/24 #10 tabs Allergies Allergy/AdvReac Type Severity Reaction Status Date / Time No Known Allergies Allergy Verified 06/08/24 08:31 Review of Systems Review of Systems: Yes all other systems are reviewed and are negative Constitutional: Constitutional: Reports as per [facility] Past Medical History Medical History Morbid obesity Hyperlipidemia, unspecified Hypertension Diabetes Surgical History Hx of knee surgery History of surgery on lower extremity Family History Family History Mother HTN (hypertension) Father Diabetes Social History Social History Alcohol intake: current Alcohol intake frequency: holidays/special occasions only Patient Tobacco Use Status: Former Tobacco user Smoked in Last 30 Days: No Use of substances other than those prescribed or required for medical reasons: No Substance Use Type: Marijuana Advance Directives: No Advance Directives Information Provided: Yes Physical Exam Vital Signs: Vital Signs: Last Vital Signs Temp 97.9 F 06/08/24 11:22 Pulse 65 06/08/24 11:22 Resp 16 06/08/24 11:22 BP 130/57 L 06/08/24 11:22 Pulse Ox 98 06/08/24 11:22 O2 Del Method Room Air 06/08/24 11:22 BMI result Body Mass Index 33.3 Const: General: cooperative, comfortable and no acute distress Orientation/consciousness: patient oriented x3 Limitations: no limitations HEENT: Head: Yes normal to inspection, Yes normocephalic and Yes atraumatic Ears: hearing grossly normal bilaterally General nose exam: Normal external nose present Face and sinus: Yes normal facial exam Mouth: Normal oral and palatal mucosa present, oropharynx normal and moist mucous membranes Throat: Yes posterior oropharynx normal Eyes: General: appearance normal, both eyes and all related structures Eyelids: Yes eyelids normal Conjunctivae: conjunctivae normal Sclerae: sclerae normal Pupils: Equal, round and reactive pupils present EOM: EOMs intact bilaterally Neck: Neck: Yes normal visual inspection, Yes full ROM and Yes no lymphadenopathy Lymphatic: no lymphadenopathy noted Chest: Chest palpation & inspection: normal inspection of the chest Resp: Effort & Inspection: normal respiratory effort and able to speak in complete sentences Auscultation: clear to auscultation bilaterally, no crackles, no rales, no rhonchi and no wheezes Cardio: Rate: regular rate Rhythm: regular rhythm Heart sounds: S1 normal heart sound present and S2 normal heart sound present GI: Inspection: Yes normal to inspection Back/Spine/Pelvis: Other: No midline spine tenderness on examination, patient has tenderness palpation along the left SI joint. Negative straight leg raise. DTRs 2+. Strength 5/5 in lower extremities. Skin: General skin exam: no rashes or lesions noted Trauma: no lacerations or abrasions Wounds: no wounds Neuro: General: patient oriented x3 and moves all extremities Cranial nerves: Yes Equal, round and reactive pupils present Extrem: General: Yes normal to inspection Right upper extremity: normal to inspection Left upper extremity: normal to inspection Right lower extremity: normal to inspection Left lower extremity: normal to inspection Medications Administered Discontinued Medications Generic Name Dose Route Start Last Admin Trade Name Freq PRN Reason Stop Dose Admin Acetaminophen 975 mg 06/08/24 09:45 06/08/24 09:53 Acetaminophen 325 Mg Tablet PO 06/08/24 09:46 975 mg ONCE ONE Administration Lidocaine 1 patch 06/08/24 09:45 06/08/24 09:53 Lidocaine 4 % Patch Adh..Patch TRANSDERMA 06/08/24 09:46 1 patch ONCE ONE Administration Protocol Medical Decision Making Medical Decision Making [facility] Narrative: This is a 49-year-old male who presents emergency department with complaints of left low back pain radiating into his left buttocks and down into his left leg. On arrival, vital signs within normal limits. He is speaking in full sentences under no acute distress. He is ambulatory with steady gait. He has tenderness palpation along the left SI joint. This patient presents with back pain most consistent with lumbar radiculopathy. Differential diagnoses includes lumbago versus musculoskeletal spasm / strain versus sciatica. No back pain red flags on history or physical. Presentation not consistent with malignancy (lack of history of malignancy, lack of B symptoms), fracture (no trauma, no bony tenderness to palpation), cauda equina (no bowel or urinary incontinence/retention, no saddle anesthesia, no distal weakness), pulmonary embolism, renal colic, pyelonephritis (afebrile, no CVAT, no urinary symptoms). X-rays were performed, lumbar spine revealing no acute bony abnormalities, there is joint space narrowing in the hip joints. Discussed findings with patient. He was medicated with Tylenol and Lidoderm patches. He will follow-up with his PCP. His symptoms are consistent with lumbar radiculopathy. Given strict return precautions. Patient stable for discharge. Differential Diagnosis Differential Diagnoses: The differential diagnosis associated with the presentation includes See above Radiology Impression Discussion of test interpretation with radiology: I have reviewed the radiologist's reading. Radiologist Impression: XR/XR lumbar spine 2-3V IMPRESSION: Unremarkable plain radiographs of the lumbar spine. Electronically signed by: Xavi Piper MD 06/08/2024 10:22 AM EST [employer] Dictated By: Xavi Piper MD Signed By: <Electronically signed by Xavi Piper MD in OV> XR/XR hip LT w PEL1V IMPRESSION: Mild bilateral hip joint space narrowing. Electronically signed by: Xavi Piper MD 06/08/2024 10:20 AM EST [employer] Dictated By: Xavi Piper MD Discharge Plan Discharge Clinical Impression: Left lumbar radiculopathy Patient Disposition: Home, Self-Care Instructions: Lumbar Radiculopathy (ED), Back Pain (ED), Lower Back Exercises (ED) Additional Instructions: You were seen in the emergency department due to low back pain. Your x-ray of your lumbar spine did not show any abnormalities. Your hip x-rays do show mild bilateral hip joint space narrowing. Please take prescribed medication as directed. Please be advised that muscle relaxants can cause drowsiness, do not drink alcohol or drive while taking this medication. Prednisone is a steroid, this helps decrease inflammation, which may help with your symptoms. Tylenol can also help with pain. Avoid NSAIDs (naproxen, ibuprofen, etc.) as you are on Xarelto. Methocarbamol is a muscle relaxants, please be advised that this can cause drowsiness, do not drink alcohol or drive while taking this medication. Lidoderm patches can also help with pain, do not directly apply heat or ice to the patch while using this. If any new or worsening symptoms occur including but not limited to loss of bowel and bladder control, numbness or tingling into your groin, weakness in her lower extremities, please seek emergent care. Prescriptions: New methocarbamol 750 mg tablet 750 mg PO TID 3 Days Qty: 9 0RF prednisone 20 mg tablet 40 mg PO DAILY 5 Days Qty: 10 0RF lidocaine [Lidoderm] 5 % adhesive patch,medicated 1 patch topical DAILY Qty: 30 0RF Rx Instructions: leave on most painful area for up to 12 hrs acetaminophen [Tylenol Extra Strength] 500 mg tablet 500 mg PO Q6H PRN (Reason: pain) Qty: 30 0RF No Action Xarelto 20 mg tablet 20 mg PO QPM Qty: 30 7RF metoprolol succinate 50 mg tablet extended release 24 hr 50 mg PO DAILY Qty: 30 10RF lisinopril 10 mg tablet 10 mg PO DAILY glimepiride 4 mg tablet 4 mg PO DAILY atorvastatin 40 mg tablet 40 mg PO BEDTIME metformin 1,000 mg tablet 1,000 mg PO DAILY Interventions: ED Discharge Assessment Last Done: 06/08/24 11:22 Discharge Date/Time: 06/08/24 11:25 Print Language: Malawian
[2024-06-08] MEDS: Lidocaine 4 % Patch ADH..PATCH 1 PATCH TRANSDERMA (09:53)
[2024-06-08] MEDS: Acetaminophen 325 MG TABLET 975 MG PO (09:53)
--- NOTE | 2024-06-08 09:54 | PC.NURSE ---
pt medicated per provider order. effectiveness pending. pt to xray at this time.
[2024-06-08 11:12] VITALS: BP 130/57; PULSE 65; RESP 16; TEMP 36.6; O2SAT 98
[2024-06-08 11:22] VITALS: BP 130/57; PULSE 65; RESP 16; TEMP 36.6; O2SAT 98
== END 2024-06-08 11:25 | disposition home or self-care (01) ==
PROVIDERS: Emergency Provider Emergency Medicine; PCP Internal Medicine
DX: M54.16 Radiculopathy, lumbar region (principal); M54.50 Low back pain, unspecified; E11.9 Type 2 diabetes mellitus without complications; I10 Essential (primary) hypertension; E78.5 Hyperlipidemia, unspecified; I48.19 Other persistent atrial fibrillation; Z79.01 Long term (current) use of anticoagulants; Z79.02 Long term (current) use of antithrombotics/antiplatelets; Z79.84 Long term (current) use of oral hypoglycemic drugs; Z79.899 Other long term (current) drug therapy
CPT/HCPCS: 72100; 73502; 99283; 99284

== ENCOUNTER → 2024-06-21 10:20 | Outpatient (REF) | payer MEDICAID, SELFPAY ==
--- NOTE | ~2024-06-21 | NM_ITS ---
EXERCISE MYOCARDIAL PERFUSION STUDY : Cardiomyopathy, assess for coronary artery disease TECHNIQUE: The patient was brought in for an exercise perfusion study on 06/21/2024. Patient performed exercise as per Kana protocol and was injected 30 mCi of sestamibi once target heart rate was achieved. Images were obtained using the SPECT gamma camera interlaced with the gating device. Images were obtained in supine position. Resting perfusion study was performed on 06/22/2024. Patient was administered 30 mCi of sestamibi intravenously at rest. Images were then obtained in supine position. Total DLP 105 mGy-cm. Images were processed with the software and compared side to side in short axis, horizontal long axis and vertical long axis views. FINDINGS: Raw aquisition reviewed. The stress perfusion study showed mildly diminished tracer uptake at the apex and apical part of inferior wall. No major improvement with CT attenuation correction. The gated study shows mildly diminished LV systolic function with calculated LVEF of 51%. LV cavity is mildly dilated in size. The gated study shows globally reduced wall thickening and contractility. Reduced apical thickening. Resting study shows mildly reduced tracer uptake along the inferior wall, more so at the apex. Some improvement with CT attenuation correction. Gating at rest reveals globally reduced wall motion with ejection fraction at 46%. The findings are consistent with mostly fixed appearing defect at the apex and apical part of inferior wall. Could be artifactual. Less likely a small nontransmural infarct. NM/NM cardiolite stress test IMPRESSION: 1. Myocardial perfusion imaging study shows no clear evidence of ischemia. Possible nontransmural infarct at the inferior apex/apex. Could also be artifactual. 2. Gated LVEF is 51% during stress and 48% during rest. 3. Transient ischemic dilatation not present. EKG component of the test reported separately. Electronically signed by: Zafar Rosales MD 06/23/2024 12:06 PM JARRET
--- NOTE | 2024-06-21 10:22 | CA_ITS ---
Acquisition Time: 2024-06-21 11:05:45 Total Exercise Time: 00:07:11 Test Indications: Dyspnea SYNCOPE Medications: ATORVASTATIN GLIMEPERIDE LISINOPRIL METOPROLOL XARELTO Protocol: CASH Max HR: 142 BPM 83% of Pred: 170 BPM Max BP: 160/062 mmHG Max Work Load: 8.8 METS Exercise Stress Test with exercise 7 mins 11 secs of Cash Protocol, achieving 84% MPHR, with mild SOB, no chest discomfort, with isolated PACs, with normotensive response to exercise. Without EKG changes meeting criteria for ischemia. Nuclear images pending. Breathing back to baseline during recovery. Test reviewed with . Referred By: Yvette Kelly Overread By: YVETTE KELLY
== END ==
LOC: HO.CARD 10:20
PROVIDERS: PCP Internal Medicine; Visit Provider Nurse Practitioner Family
DX: R06.02 Shortness of breath (principal); R55 Syncope and collapse; I42.8 Other cardiomyopathies
CPT/HCPCS: 78452; 93017; A9500

== ENCOUNTER → 2024-06-21 10:22 | Outpatient (BNV) | payer MEDICAID, SELFPAY | PROVIDERS: PCP Internal Medicine; Visit Provider Nurse Practitioner Family | DX: R06.02 Shortness of breath (principal); I49.1 Atrial premature depolarization | CPT/HCPCS: 78452; 93016; 93018 ==

== ENCOUNTER 2024-07-04 13:58 | Outpatient (AMB) | payer MEDICAID, SELFPAY ==
[2024-07-04 14:02] VITALS: BP 134/62; PULSE 54; BMI 32.7
--- NOTE | 2024-07-04 14:02 | MHC.OFFVIS ---
Vital Signs 07/04/24 14:02 Height 6 ft 2 in Weight 254 lb 13.67 oz BMI 32.7 BP 134/62 Blood Pressure Location Lt brachial Position Sitting Pulse 54 Pulse Source Monitor Intake Visit Reasons: 2.5 mth f/.up Detail Manager Required: No Allergies No Known Allergies Allergy (Verified 07/04/24 14:03) Medication List - Last Reconciled 07/04/24 by Yvette Kelly, CALDERON-C acetaminophen (Tylenol Extra Strength) 500 mg PO Q6H PRN atorvastatin 40 mg PO BEDTIME glimepiride 4 mg PO DAILY insulin glargine (Lantus Solostar U-100 Insulin) 34 units subcut BEDTIME lidocaine 5% (Lidoderm) 1 patch topical DAILY lisinopril 10 mg PO DAILY metformin 1,000 mg PO DAILY metoprolol succinate ER 50 mg PO DAILY rivaroxaban (Xarelto) 20 mg PO QPM HPI HPI 2.5 mth f/.up: Details: Jayce is a 49-year-old male with past medical history of diabetes, hypertension, cardiomyopathy, atrial fibrillation status post ablation who has undergone cardiac evaluation for syncopal event. He underwent an echocardiogram, nuclear stress test and a Holter monitor and now presents for follow-up. Today he reports that he has not had any recurrent syncopal events since prior to his last visit. He does notice some shortness of breath with exertional activities which cause him concern. He has no chest discomfort at rest or with activity. No lightheadedness, presyncope, syncope, falls. No PND, orthopnea or edema. Compliant with his meds. No bleeding issues reported. [facility] Medical History Morbid obesity Hyperlipidemia, unspecified Hypertension Diabetes Surgical History Hx of knee surgery History of surgery on lower extremity Family History Mother HTN (hypertension) Father Diabetes Social History Alcohol intake: current Alcohol intake frequency: holidays/special occasions only Patient Tobacco Use Status: Former Tobacco user Substance Use Type: Marijuana Review of Systems Const All systems reviewed & are unremarkable except as noted in HPI and below ENT Denies dizziness Card Denies chest pain, Denies chest pain at rest, Denies chest pain with activity, Denies rapid heart rate, Denies pedal edema, Denies edema, Denies leg edema, Denies lightheadedness, Denies palpitations, Denies dyspnea, Reports dyspnea on exertion and Denies orthopnea Resp Denies cough, Denies dyspnea and Reports dyspnea on exertion GI Denies hematochezia and Denies change in stool character Musc Denies abnormal gait, Denies limited range of motion, Denies muscle cramps, Denies muscle weakness, Denies numbness, Denies radiating pain into limb, Denies stiffness and Denies tingling Neuro Denies abnormal gait, Denies dizziness, Denies numbness and Denies tingling Endo Denies palpitations Physical Exam Vital Signs: Last Vital Signs Pulse 54 07/04/24 14:02 BP 134/62 07/04/24 14:02 BMI result Body Mass Index 32.7 Const General: cooperative, healthy appearing, comfortable and no acute distress Orientation/consciousness: patient oriented x3 Neck Neck: Yes normal visual inspection Resp Effort & Inspection: normal respiratory effort Auscultation: clear to auscultation bilaterally, no crackles, no rales, no rhonchi and no wheezes Cardio Rate: regular rate Rhythm: regular rhythm Heart sounds: S1 normal heart sound present, S2 normal heart sound present, no murmurs and no rubs Neuro General: patient oriented x3 Extrem General: Yes normal to inspection Psych Appearance: grossly normal Mental Status: mental status grossly normal Speech and movement: Normal speech and movement present Assessment & Plan Assessment & Plan (1) Syncope: Code(s): R55 - Syncope and collapse Category: Medical Plan: Episode of syncope that occurred in a bar after drinking 3 alcoholic beverages which he says is not unusual for him. He does not recall clear symptoms prior to the event. He remembers waking up on the floor and someone had a cool cloth on his forehead. He has never had syncope in the past. ER evaluation completed without acute findings. EKG done last visit showing normal sinus rhythm, septal Q-wave which could be related to lead placement, rate 70. Prior echo in September 2022 showed EF 30-35%. His reduced EF was thought to be tachycardia mediated from PAF. I did have him undergo repeat echocardiogram on 05/12/2024 showing EF 61%, no valve abnormalities and no regional wall motion abnormalities. A Holter monitor was done 05/12/2024 for 3 days showing sinus rhythm with average heart rate 80, occasional PACs. He has had no recurrent syncopal events. His syncope was likely vasovagal in nature. Reviewed thde need for limiting alcohol use, maintaining good hydration, recognizing symptoms and sit/lay down if presyncopal. Emergency care if needed for symptoms. (2) Persistent atrial fibrillation: Code(s): I48.19 - Other persistent atrial fibrillation Category: Medical Plan: History of persistent atrial fibrillation status post cardioversion. He had been on amiodarone and did undergo an AFib ablation earlier this year. Says he has not had any known recurrent atrial fibrillation since that time. He is no longer on amiodarone. He is on metoprolol XL 50 mg daily for rate control and Xarelto 20 mg daily for anticoagulation. No bleeding issues reported. Following his syncope a CT scan of the head showed no acute findings. EKG last visit shows sinus rhythm. Holter monitor shows sinus rhythm with average rate 80 per. Pulse is regular on examination today. Continue current med management. (3) Cardiomyopathy: Code(s): I42.9 - Cardiomyopathy, unspecified Category: Medical Qualifiers: Cardiomyopathy type: other Qualified Code(s): I42.8 - Other cardiomyopathies Plan: Prior cardiomyopathy with EF 30-35%. He was thought to be related to elevated heart rates with AFib. Due to his recent syncope he did have a repeat nuclear stress test done on 06/21/2024 with exercise 7 minutes 11 seconds with no chest pain or EKG changes. His nuclear imaging showed no clear ischemia, possible nontransmural infarct in inferior apex and apex. Could be artifact. He does report shortness of breath with exertional activities. His EF is normal. Will check a CTA of the coronary arteries to assess for any obstructive coronary artery disease. If CTA is normal or no significant CAD then his shortness of breath is likely related to deconditioning. If CTA is abnormal then plan to further discuss plan of care with him. Will call him with results. Cardiology office visit 3-4 months, sooner if needed. (4) Shortness of breath: Code(s): R06.02 - Shortness of breath Category: Medical Plan: Reports of shortness of breath with activity that he feels is worse in the last year. Testing as above Plan Time spent on chart review, documentation, interview and assessment Orders: Orders CT Cardiac Coronary Angio Today R06.02 - Shortness of breath, R94.39 - Abnormal result of other cardiovascular function study Basic Metabolic Panel Today R94.39 - Abnormal result of other cardiovascular function study Coding Level of Care Code Est Pt Level 4 (34750) Complex EM visit Add On G2211 Diagnoses Syncope R55 Persistent atrial fibrillation I48.19 Other cardiomyopathy I42.8 Cardiomyopathy type: other Shortness of breath R06.02 Time Spent (min) 28
== END 2024-07-04 14:34 | disposition home or self-care (01) ==
PROVIDERS: PCP Internal Medicine; Visit Provider Nurse Practitioner Family
DX: R55 Syncope and collapse (principal); I48.19 Other persistent atrial fibrillation; I42.8 Other cardiomyopathies; R06.02 Shortness of breath
CPT/HCPCS: 99214

== ENCOUNTER → 2024-07-04 13:58 | Outpatient (BNVA) | payer MEDICAID, SELFPAY | PROVIDERS: PCP Internal Medicine; Visit Provider Nurse Practitioner Family | DX: R55 Syncope and collapse (principal); I48.19 Other persistent atrial fibrillation; I42.8 Other cardiomyopathies; R06.02 Shortness of breath | CPT/HCPCS: 99212 ==

== ENCOUNTER 2024-07-18 14:04 | Outpatient (RCR) | payer MEDICAID, SELFPAY ==
--- NOTE | 2024-07-08 15:15 | MHC.PT.EP ---
[facility] [place] Office [place] Office [place] Office [address] Kristian Rizvi [address] [phone] F: [phone] F: [phone] F: [phone] F: [phone] Physical Therapy Plan of Care Date of Evaluation: 07/06/24 Date of Surgery: n/a Diagnosis: Lumbar radiculopathy Assessment: Pt is a pleasant and motivated 49yo M who presents to PT with low back pain with intermittent radicular symptoms into E. He presents to PT with current impairments in pain, decreased lumbar ROM, decreased strength, impaired posture, and impaired body mechanics. He has a LLD from LLE surgery when he was younger. He is limited functionally by prolonged sitting, prolonged standing, prolonged walking, getting out of bed, bending, and stair navigation. He is a good candidate for skilled PT in order to address current impairments to facilitate return to PLOF. He is recommended to be seen 2x/week for 4 weeks and will be reassessed at that time Frequency and Duration: The patient will be seen 2x/week for 4 weeks Short Term Goals: Pt will be independent with HEP to promote self management of symptoms Pt will demonstrate improvements in postural awareness and body mechanics throughout the day Leather Dresser Goals: Pt will tolerate prolonged sitting and standing > 1 hour with improved posture and minimal to no pain or discomfort Pt will demonstrate ability to squat and pick and shovel worker object from the floor with proper body mechanics and minimal to no pain or discomfort Treatment Plan: Modalities to reduce pain, spasms and effusion. Manual therapy to restore motion and function. Therapeutic exercise to improve strength and flexibility. Neuromuscular re-education for posture and balance. Therapeutic activities to return to functional activities of daily living. Electronically signed by: Page Jules, PT, DPT Please sign and return to therapist. Thank you for your referral.
--- NOTE | 2024-09-22 14:53 | MHC.PT.DC ---
[facility] [place] Office [place] Office [place] Office [address] Kristian Rizvi [address] [phone] F: [phone] F: [phone] F: [phone] F: [phone] Physical Therapy Discharge Report Diagnosis: Lumbar radiculopathy Date of Surgery: n/a Date of Evaluation: 07/06/24 Date of Discharge: 09/22/24 Treatments to Date: 3 Cancellations to Date: 4 No Shows to Date: 2 Discharge Status: Visit Non-compliance Discharge Summary: Pt was seen for PT from 07/06/24-07/18/24. He has had 4 cancellations and 2 no show appointments since SOC. He is being D/C from skilled PT per [facility] [place] [place] attendance policy and visit non compliance. Pt current level of function unknown at this time Electronically signed by: Page Jules, PT, DPT Please sign and return to therapist. Thank you for your referral.
== END 2024-09-22 14:53 | disposition home or self-care (01) ==
LOC: HO.PT 14:04
PROVIDERS: PCP Internal Medicine; Visit Provider Internal Medicine
DX: M54.16 Radiculopathy, lumbar region (principal)
CPT/HCPCS: 97110; 97162

== ENCOUNTER 2024-08-06 18:01 | Emergency (ER) | payer MEDICAID, SELFPAY ==
--- NOTE | ~2024-08-06 | XR_ITS ---
CLINICAL HISTORY: pain 3 view right shoulder Comparison: None Findings: No fractures or dislocations. Mild acromioclavicular and glenohumeral osteoarthritis. No erosions. No radiopaque foreign body. IMPRESSION: 1. No acute findings This document has been electronically signed by: Denice Conde MD on 08/06/2024 18:50:34
[2024-08-06 18:06] VITALS: BP 124/51; PULSE 77; RESP 19; TEMP 36.6; O2SAT 99; BMI 32.6
--- NOTE | 2024-08-06 18:15 | ED.EXTPRO ---
HPI - Extremity Problem General Chief complaint: Extremity Injury, Upper Stated complaint: right arm/shoulder pain,tingling h/o afib Time Seen by Provider: 08/06/24 19:29 Source: patient Limitations: no limitations History of Present Illness ED Provider: Nuria Franco PA-C HPI Narrative: 49-year-old male with history of cardiomyopathy, hypertension, diabetes and AFib on rivaroxaban, presents with right shoulder pain x1 day. Patient states he is currently in physical therapy for a back related injury. Patient states when he was younger he played basketball, baseball and football. There was no new additional repetitive activity that the patient has been performing other than exercises at physical therapy. There has been no trauma. Patient denies redness or swelling of the joint no fever. Related Data Home Medications ?Medication ?Instructions ?Recorded ?Confirmed atorvastatin 40 mg tablet 40 mg PO BEDTIME 09/25/22 07/04/24 glimepiride 4 mg tablet 4 mg PO DAILY 09/25/22 07/04/24 lisinopril 10 mg tablet 10 mg PO DAILY 09/25/22 07/04/24 metformin 1,000 mg tablet 1,000 mg PO DAILY 09/25/22 07/04/24 insulin glargine 100 unit/mL (3 34 unit subcut BEDTIME 07/04/24 07/04/24 mL) subcutaneous pen (Lantus Solostar U-100 Insulin) Previous Rx's ?Medication ?Instructions ?Recorded metoprolol succinate 50 mg 50 mg PO DAILY #30 tabs 10/07/23 tablet,extended release 24 hr acetaminophen 500 mg tablet 500 mg PO Q6H PRN pain #30 tabs 06/08/24 (Tylenol Extra Strength) lidocaine 5 % topical patch 1 patch topical DAILY #30 ea 06/08/24 (Lidoderm) rivaroxaban 20 mg tablet (Xarelto) 20 mg PO QPM #90 tabs 06/20/24 meloxicam 15 mg tablet 15 mg PO DAILY #7 tabs 08/06/24 methocarbamol 750 mg tablet 1,500 mg (2 x 750 mg) PO Q8H PRN 08/06/24 pain, moderate #24 tabs Allergies Allergy/AdvReac Type Severity Reaction Status Date / Time No Known Allergies Allergy Verified 08/06/24 18:07 Review of Systems Review of Systems: Yes all other systems are reviewed and are negative Constitutional: Constitutional: Denies fatigue and Denies fever(s) ENT: Denies neck pain Cardiovascular: Cardiovascular: Denies chest pain and Denies dyspnea Respiratory: Respiratory: Denies dyspnea Musculoskeletal: Musculoskeletal: Denies deformity, Reports arthralgias, Denies joint swelling, Denies neck pain, Denies numbness, Denies radiating pain into limb and Denies tingling Neurologic: Denies numbness and Denies tingling Endocrine: Endocrine: Denies fatigue PMFSH Past Medical History Attestation statement: The following information was validated with the patient. Medical History Morbid obesity Hyperlipidemia, unspecified Hypertension Diabetes Surgical History Hx of knee surgery History of surgery on lower extremity Family History Family History Mother HTN (hypertension) Father Diabetes Social History Social History Alcohol intake: current Alcohol intake frequency: holidays/special occasions only Patient Tobacco Use Status: Former Tobacco user Substance Use Type: Marijuana Advance Directives: No Advance Directives Information Provided: Yes Physical Exam Vital Signs: Vital Signs: Last Vital Signs Temp 98 F 08/06/24 18:06 Pulse 77 08/06/24 18:06 Resp 19 08/06/24 18:06 BP 124/51 L 08/06/24 18:06 Pulse Ox 99 08/06/24 18:06 O2 Del Method Room Air 08/06/24 18:06 BMI result Body Mass Index 32.6 Const: Other: Alert well-appearing Orientation/consciousness: patient oriented x3 Neck: Other: Full range of motion soft supple no pain elicited with movement Resp: Effort & Inspection: normal respiratory effort Cardio: Other: Normal peripheral perfusion Skin: Other: Warm dry no rash Neuro: General: patient oriented x3, no focal motor deficits and CN's II-XI intact bilaterally Extrem: Other: No swelling warmth or erythema noted over the right shoulder joint, patient can range the joint, however it is limited secondary to pain. He has focal tenderness with palpation of bicipital groove. Psych: Other: Calm cooperative Course Course Course Narrative: 49 yo male with PMH of DM, afib on xarelto, HTN, HLD, cardiomyopathy here with c/o 1 day of atraumat R shoulder pain with arm hurting unable to lift it. No numbness or weaking but pain in shoulder. No rash no fevers. He is R handed. He think he slept wrong at this time xray ordered but clinically based off history and quick exam I suspect tendonitis this is a RAPID medical screening exam the rest of the history and physical exam is to be done by the main provider. Medical Decision Making Medical Decision Making [facility] Narrative: 49-year-old male with history of cardiomyopathy, hypertension, diabetes and AFib on rivaroxaban, presents with right shoulder pain x1 day. Patient states he is currently in physical therapy for a back related injury. Patient states when he was younger he played basketball, baseball and football. There was no new additional repetitive activity that the patient has been performing other than exercises at physical therapy. There has been no trauma. Patient denies redness or swelling of the joint no fever. Problem: Diabetes History: Per patient I have considered the following differential diagnoses: Septic joint, fracture, dislocation, arthritis, biceps tendinitis Plan: X-ray obtained from triage, the patient has degenerative changes, this is likely secondary to his prior sports-related activities. We will be treating for biceps tendinitis given the nature of his exam. To note he has no concerning exam findings that would be consistent with a septic joint. I have independently reviewed the following tests: X-ray right shoulder:Findings: No fractures or dislocations. Mild acromioclavicular and glenohumeral osteoarthritis. No erosions. No radiopaque foreign body. IMPRESSION: 1. No acute findings This document has been electronically signed by: Denice Conde MD on 08/06/2024 18:50:34 Discharge Plan Discharge Clinical Impression: Biceps tendinitis of right shoulder Patient Disposition: Home, Self-Care Instructions: Tendinitis (ED) Additional Instructions: The x-ray revealed that you have significant arthritic changes of the right shoulder. We are treating you for biceps tendinitis. See home care instructions. Use the meloxicam as directed, this is an anti-inflammatory. Use the methocarbamol as needed, this is a muscle relaxant, for additional pain. To note this medication will cause drowsiness, do not drive or operate machinery while taking the medication. You may require physical therapy for the shoulder joint as well. You should follow up with your primary care provider to initiate this treatment. In addition, you may be referred to an orthopedist, for a cortisone joint injection. Prescriptions: New meloxicam 15 mg tablet 15 mg PO DAILY Qty: 7 0RF methocarbamol 750 mg tablet 1,500 mg PO Q8H PRN (Reason: pain, moderate) Qty: 24 0RF No Action metoprolol succinate 50 mg tablet extended release 24 hr 50 mg PO DAILY Qty: 30 10RF Xarelto 20 mg tablet 20 mg PO QPM Qty: 90 3RF lidocaine [Lidoderm] 5 % adhesive patch,medicated 1 patch topical DAILY Qty: 30 0RF Rx Instructions: leave on most painful area for up to 12 hrs acetaminophen [Tylenol Extra Strength] 500 mg tablet 500 mg PO Q6H PRN (Reason: pain) Qty: 30 0RF lisinopril 10 mg tablet 10 mg PO DAILY glimepiride 4 mg tablet 4 mg PO DAILY atorvastatin 40 mg tablet 40 mg PO BEDTIME metformin 1,000 mg tablet 1,000 mg PO DAILY insulin glargine [Lantus Solostar U-100 Insulin] 100 unit/mL (3 mL) insulin pen 34 unit subcut BEDTIME Print Language: [place]
[2024-08-06 20:15] VITALS: BP 124/62; PULSE 76; RESP 19; TEMP 36.8; O2SAT 98
[2024-08-06] MEDS: Ketorolac Tromethamine 15 MG/ML VIAL IM (20:37)
[2024-08-06 20:42] VITALS: BP 124/62; PULSE 76; RESP 19; TEMP 36.8; O2SAT 98
== END 2024-08-06 20:43 | disposition home or self-care (01) ==
PROVIDERS: Emergency Provider Internal Medicine; PCP Internal Medicine
DX: M75.31 Calcific tendinitis of right shoulder (principal); M25.511 Pain in right shoulder; I10 Essential (primary) hypertension; Z79.899 Other long term (current) drug therapy
CPT/HCPCS: 73030; 96372; 99283; 99284; J1885

== ENCOUNTER 2024-12-13 09:31 | Outpatient (REF) | payer MEDICAID, SELFPAY ==
[2024-12-13 09:54] LABS: MANUAL DIFF FLAG NO
--- OUTSIDE RECORDS SUMMARY | 2024-12-13 10:06 | XMS_ITS | Continuity of Care Document ---
Author Organization [facility] ter Address [address] [place] [id number]- Care Team Providers Care Barrel Stave Inspector Name Role Phone Padmini Brady MD Primary Care Physician Encounter 12/08/24 - 12/09/[address] [address]- Attending Physician: Not on Staff, Attending MD Referring Physician: Not on Staff, Referring MD Encounter Type: [facility] Allergies, Adverse Reactions, Alerts No Known Allergies Immunizations Given and Recorded Vaccine Date Status Refusal Reason SARS-CoV-2 (COVID-19) mRNA BNT-162b2 vac 10/20/20 Given SARS-CoV-2 (COVID-19) mRNA BNT-162b2 vac 09/29/20 Given Medications amiODARONE = 200 mg, Daily, 0 Refills, Maintenance, 06/17/23 4:19:00 PM EST, Partial fill upon patient requestif the prescription is for a schedule II opioid drug. Start Date: 06/17/23 Status: Ordered Repeat number: 1 atorvastatin 40 mg oral tablet 1 tablet = 40 mg, By Mouth, Daily, 0 Refills, Maintenance, 06/17/23 4:18:00 PM EST, Partial fill upon patient request if the prescription is for a schedule II opioid drug. Start Date: 06/17/23 Status: Ordered Repeat number: 1 Glimepiride = 4 mg, By Mouth, Daily, 0 Refills, Maintenance, 06/17/23 4:13:00 PM EST, Partial fill upon patientrequest if the prescription is for a schedule II opioid drug. Start Date: 06/17/23 Status: Ordered Repeat number: 1 Januvia = 100 mg, By Mouth, Daily, 0 Refills, Maintenance, 06/17/23 4:20:00 PM EST, Partial fill upon patient request if the prescription is for a schedule II opioid drug. Start Date: 06/17/23 Status: Ordered Repeat number: 1 Lisinopril = 10 mg, By Mouth, Daily, 0 Refills, Maintenance, 06/17/23 4:13:00 PM EST, Partial fill upon patient request if the prescription is for a schedule II opioid drug. Start Date: 06/17/23 Status: Ordered Repeat number: 1 Metformin = 1,000 mg, By Mouth, 2 times a day, 0 Refills, Maintenance, 06/17/23 4:13:00 PM EST, Partial fill upon patient request if the prescription is for a schedule II opioid drug. Start Date: 06/17/23 Status: Ordered Repeat number: 1 metoprolol 50 mg oral tablet, extended release 50 mg, 1, tablet, By Mouth, Daily, Refills 0, Maintenance, 06/17/23 4:19:00 PM EST, Partial fill upon patient request if the prescription is for a schedule II opioid drug. Start Date: 06/17/23 Status: Ordered Repeat number: 1 metroNIDAZOLE 500 mg oral tablet 4 tablet = 2,000 mg, By Mouth, Once, # 4 tablet, 0 Refills, Soft Stop, 06/28/15 8:19:55 PM EST, Tablet, [facility]/pharmacy #[id number] Start Date: 06/28/15 Status: Ordered Quantity: 4.0 Unit: tablet Repeat number: 1 pantoprazole 40 mg oral delayed release tablet = 40 mg, By Mouth, 2 times a day, TAKE FOR ONE MONTH ONLY, # 60 tablet, 0 Refills, Maintenance, 10/16/23 10:25:00 AM EDT, EC Tablet, 187.9, cm, 10/16/23 7:18:00 EDT, Height Start Date: 10/16/23 Status: Ordered Quantity: 60.0 Unit: tablet Repeat number: 1 Xarelto 20 mg oral tablet 1 tablet = 20 mg, By Mouth, Daily before dinner, 0 Refills, Maintenance, 06/17/23 4:18:00 PM EST, Partial fill upon patient request if the prescription is for a schedule II opioid drug. Start Date: 06/17/23 Status: Ordered Repeat number: 1 Problem List Condition Confirmation Course Effective Dates Status Health St atus Informant Obese class I Confirmed Active Results Radiology Reports * Exam Date Time Procedure Performing Provider Status 12/08/24 4:12 PM MRI Lumbar Spine W/O Contrast Auth (Verified) Notes: (MRI Lumbar Spine W/O Contrast) Reason For Exam: Reason For Exam: M54.16/RADICULOPATHY, LUMBAR REGION, , Patient experiencing left-sided low back pain and radiating pain in l;Reason For Exam: M54.16/RADICULOPATHY, LUMBAR REGION, , Patient experiencing left-sided low back pain and radiating pain in l RESULT: MRI Lumbar Spine W/O Contrast [facility] VISIT NUMBER :[id number] Patient Name: Chris Johns Date of : 1975 Date of Exam: 12-08-2024 Referring Physician: [facility] [address] [place] [id number] Exam: MR Lumbar Spine (C-) CPT 55439 Room Description: [facility] 3.0T HISTORY: Back pain. COMPARISON: None. FINDINGS: ALIGNMENT, VERTEBRAE, MARROW, AND DISCS: Vertebral body height, curvature, and alignment are normal. There is disc desiccation from L3 inferiorly there is no, with only minimal disc space narrowing at L5-S1 where Modic type II endplate changes are seen. Bulky anterior osteophyte is seen at L1-2 and L2-3 on the left, with mild adjacent marrow edema, which appears degenerative in nature. Benign T1 bright hemangioma is seen in the L3 vertebral bodies towards the left. No suspicious osseous lesions are seen. CONUS: The visualized lower thoracic cord is normal in caliber and signal. The conus terminates at L1-2. PARASPINAL TISSUES: Minimal edema is seen in the left psoas muscle at L1-2 and L2-3 due to the adjacent large osteophyte. Posterior paraspinal soft tissues are unremarkable. DETAILED FINDINGS BY LEVEL: L1-L2: There is no significant canal or neural foraminal stenosis. L2-L3: There is very minimal disc bulging without canal stenosis. Left-sided facet spurring is seen. There is minimal narrowing of both neural foramen. L3-L4: There is diffuse disc bulging with a posterior annular tear as well as mild facet spurring without canal stenosis. Moderate bilateral neural foraminal stenosis is seen, left greater than right. L4-L5: There is diffuse disc bulging and bilateral facet spurring without canal stenosis. Moderate bilateral neural foraminal stenosis is noted. L5-S1: There is diffuse disc bulging with a posterior annular tear as well as mild facet spurring, though there is no canal stenosis. Marginal osteophyte contributes to moderate to severe narrowing of both neural foramen, left greater than right. IMPRESSION: 1. Multilevel degenerative changes are seen as described, without high-grade canal stenosis or convincing nerve root impingement. Electronically Signed By: Jossy Jimenez MD Dictated By: Not on Staff , JAZMYNE RAMIREZ Dictated Date/Time: 12/09/24 7:53 pm Reviewed By: Not on Staff , JAZMYNE RAMIREZ Signed By: Not on Staff , JAZMYNE RAMIREZ Signed Date/Time: 12/09/24 7:53 pm Transcribed By: TS Transcribed Date/Time: 12/09/24 7:53 pm Social History Social History Type Response Smoking Status Former smoker, quit more than 30 days ago entered on: 12/21/23 Sex Sex Representation Male (finding) Patient Care team information Care Team Personnel Name: Padmini Brady MD Position: [facility] Outreach Member Role: PCP Address: [address] [place] [address] [address] [place] [address]- Telecom: Care Team Related Persons Name: RODNEY JOHNS Name: FLYNN PEREZ Insurance Providers Guarantor name: [facility] Plan Information #: 1 Payer: [email or web address] Member Number: NA Policy Number: NA Group Number: [id number]
[2024-12-13 10:22] LABS: Basophils Percent Auto 0.2 % (0-2); Eosinophils Absolute Auto 0.1 X10*3/uL (0.0-0.4); Eosinophils Percent Auto 1.1 % (0-4); Hematocrit 36.2 % (42.0-52.0); Hemoglobin 11.5 g/dl (14.0-18.0); Imm Gran Abs Auto 0.02 X10*3/uL (0.00-0.03); Imm Gran Pct Auto 0.4 % (0.0-0.4); Lymphocytes Absolute Auto 1.5 X10*3/uL (1.2-4.9); Lymphocytes Percent Auto 27.7 % (20-40); Mean Corpuscular HGB Conc 31.8 g/dl (31.0-36.0); Mean Corpuscular Hemoglobin 28.2 pg (27.0-33.0); Mean Corpuscular Volume 88.7 fL (80.0-98.0); Mean Platelet Volume 9.9 fL (9.4-12.4); Monocytes Absolute Auto 0.6 X10*3/uL (0.1-1.2); Monocytes Percent Auto 11.6 % (2-11); Neutrophils Absolute Auto 3.1 x10*3/uL (2.0-8.3); Platelet Count 255 X10*3/uL (160-400); Red Blood Count 4.08 X10*6/uL (4.60-5.80); White Blood Count 5.3 X10*3/uL (4.8-10.8)
[2024-12-13 10:23] LABS: Estimated Average Glucose 148 mg/dL; Hemoglobin A1c % 6.8 % (<6.0)
[2024-12-13 11:05] LABS: Alanine Aminotransferase 11 U/L (0-40); Albumin Level 4.2 g/dL (3.5-5.0); Alkaline Phosphatase 75 U/L (39-117); Anion Gap 10 (12-20); Aspartate Amino Transferase 23 U/L (5-37); Bilirubin Total 0.4 mg/dL (0.0-1.0); Blood Urea Nitrogen 16 mg/dL (9-16); Calcium 9.3 mg/dL (8.4-10.2); Carbon Dioxide 29 mmol/L (22-29); Chloride 105 mmol/L (96-108); Cholesterol 128 mg/dL (<200); Estimated Glomerular Filt Rate > 60; Glucose Random 80 mg/dL (60-115); HDL Cholesterol 49 mg/dL (>40); LDL Cholesterol Calculated 63 mg/dL (<100); Potassium 4.2 mmol/L (3.3-5.1); Sodium 140 mmol/L (135-145); Total Protein 7.3 g/dL (6.5-8.0); Triglycerides 83 mg/dL (<150)
[2024-12-13 11:31] LABS: Creatinine Urine 63.76 mg/dL; Microalbum/Creatinine Ratio Ur 37.6 ug/mg cr (<30)
== END 2024-12-13 09:32 | disposition home or self-care (01) ==
LOC: HO.LAB 09:31
PROVIDERS: PCP Internal Medicine; Visit Provider Internal Medicine
DX: E11.9 Type 2 diabetes mellitus without complications (principal); E78.00 Pure hypercholesterolemia, unspecified; I43 Cardiomyopathy in diseases classified elsewhere; M54.16 Radiculopathy, lumbar region; N40.0 Benign prostatic hyperplasia without lower urinary tract symptoms; R80.8 Other proteinuria; Z79.01 Long term (current) use of anticoagulants
CPT/HCPCS: 36415; 80053; 80061; 82043; 82570; 83036; 84153; 85025

== ENCOUNTER 2025-04-17 08:58 | Outpatient (AMB) | payer MEDICAID, SELFPAY ==
--- NOTE | 2025-04-17 09:00 | A.OFFVIS_ITS ---
Vital Signs 04/17/25 09:01 Height 6 ft 2 in Weight 258 lb BMI 33.1 BP 140/64 H Blood Pressure Location Rt brachial Position Sitting Pulse 74 Pulse Source Pulse Oximeter Pulse Oximetry (%) 99 Oxygen Delivery Method Room Air Intake Visit Reasons: colo screening Intake Note: New pt for initial colo screening. CC: C.O. GERD, bloating, epigastric pain, and diarrhea intermittently w/o evidence of hemo. Manager Technical Required: No Accompanied by: Self / Same As Patient Allergies No Known Allergies Allergy (Verified 04/17/25 09:00) HPI HPI colo screening: Details: Patient referred by PCP for routine screening for colonoscopy. Has heartburn, increased bloating, gassy, bouts of diarrhea. These have been ongoing for about a year. Diarrhea is significant where it will come for about 2-3 days at a time. Denies any blood in stool. Reports this is accompanied with significant bloating. He does not know any obvious triggers. He reports his diet could be better, eats a lot of starchy grains.? Denies dysphagia, dyspepsia, odynophagia, early satiety, epigastric pain, belching, constipation, melena, hematochezia, ribbon like stools, nausea, vomiting, unintentional weight loss. No known family history of colon cancer. Has no known adverse reactions to anesthesia. No history FRANCISCO. On xarelto for AFIB. Last visit in 2023 missed his follow-up appointment with Cardiology. Will send patient to make appointment before going for procedure [facility] Medical History Morbid obesity Hyperlipidemia, unspecified Hypertension Diabetes Surgical History Hx of knee surgery History of surgery on lower extremity Family History Mother HTN (hypertension) Father Diabetes Social History Alcohol intake: current Alcohol intake frequency: holidays/special occasions only Patient Tobacco Use Status: Former Tobacco user Substance Use Type: Marijuana Review of Systems Const Denies weight gain and Denies weight loss ENT Reports no additional complaints, Denies dysphagia and Denies odynophagia Card Reports no additional complaints Resp Reports no additional complaints GI Reports abdominal pain, Denies belching, Denies melena, Reports bloating, Denies change in bowel habits, Denies dysphagia, Denies excessive flatus, Denies dyspepsia, Reports heartburn, Denies diarrhea, Reports loose stools, Denies nausea, Denies odynophagia and Denies vomiting Reports no additional complaints Musc Reports no additional complaints Neuro Reports no additional complaints Psych Reports no additional complaints Endo Reports no additional complaints Physical Exam Vital Signs: Last Vital Signs Pulse 74 04/17/25 09:01 BP 140/64 H 04/17/25 09:01 Pulse Ox 99 04/17/25 09:01 Oxygen Delivery Method Room Air 04/17/25 09:01 BMI result Body Mass Index 33.1 Const General: healthy appearing, no acute distress and well developed Nutritional Appearance: well nourished Orientation/consciousness: patient oriented x3 Resp Effort & Inspection: normal respiratory effort, able to speak in complete sentences, no tracheal deviation and symmetric chest movement Auscultation: clear to auscultation bilaterally Cardio Rate: regular rate GI Inspection: Yes normal to inspection and No distended Palpation (GI): Soft to palpation, not firm, nontender and No hepatosplenomegaly present Auscultation: normal bowel sounds General: Yes no CVA tenderness Back/Spine/Pelvis Back: no CVA tenderness Skin General skin exam: elasticity normal, turgor normal and dry skin Neuro General: patient oriented x3 Psych Appearance: grossly normal Mental Status: mental status grossly normal Assessment & Plan Assessment & Plan (1) GERD (gastroesophageal reflux disease): Code(s): K21.9 - Gastro-esophageal reflux disease without esophagitis Qualifiers: Esophagitis presence: esophagitis presence not specified Qualified Code(s): K21.9 - Gastro-esophageal reflux disease without esophagitis (2) Postprandial epigastric pain: Code(s): R10.13 - Epigastric pain (3) Postprandial abdominal bloating: Code(s): R14.0 - Abdominal distension (gaseous) (4) Postprandial diarrhea: Code(s): K52.9 - Noninfective gastroenteritis and colitis, unspecified (5) Abdominal pain: Code(s): R10.9 - Unspecified abdominal pain Plan Will send H pylori breath test and treat empirically if positive. Patient will start taking omeprazole daily. Avoid dietary triggers and late night snacking. Staying upright for minimal 3 hours after meals discussed with patient. Will check A1c, CRP to rule out inflammatory disease with fecal calprotectin. Will check vitamin B12, folate, vitamin-D level. Will rule out celiac. Patient will make an appointment with Cardiology so we can send him for colonoscopy and upper endoscopy. I will see patient in 3 months to discuss the prep and bulk procedure for him. Patient is agreeable to this plan and verbalizes understanding of instructions. He was given the opportunity to ask questions and all questions answered. Thank you for allowing me to participate in his care Orders: Orders H Pylori Breath Test Today K21.9 - Gastro-esophageal reflux disease without esophagitis Hemoglobin A1c Today Z83.3 - Family history of diabetes mellitus C Reactive Protein Today K58.9 - Irritable bowel syndrome, unspecified Vitamin B12 and Folate Today R19.7 - Diarrhea, unspecified Calprotectin, Fecal Today R15.9 - Full incontinence of feces Transglutaminase Ab IgG Today R10.9 - Unspecified abdominal pain Transglutaminase IgA Today R10.9 - Unspecified abdominal pain TSH reflex Free T4 Today K59.00 - Constipation, unspecified Lipase Today R10.9 - Unspecified abdominal pain Vitamin D 25-OH (D2 and D3) Today E55.9 - Vitamin D deficiency, unspecified Medications: New methylcellulose (laxative) (Citrucel) take it with full glass of water 500 mg PO DAILY 90 tabs 2RF K59.00 - Constipation, unspecified omeprazole 40 mg PO DAILY 60 caps 2RF K21.9 - Gastro-esophageal reflux disease without esophagitis Coding Level of Care Code New Pt Level 4 (21301) Diagnoses Gastroesophageal reflux disease, unspecified whether esophagitis present K21.9 Esophagitis presence: esophagitis presence not specified Postprandial epigastric pain R10.13 Postprandial abdominal bloating R14.0 Postprandial diarrhea K52.9 Abdominal pain R10.9 Time Spent (min) 45 Comment 35 minutes spent with patient and additional 10 minutes spent reviewing his re cords
[2025-04-17 09:01] VITALS: BP 140/64; PULSE 74; O2SAT 99; BMI 33.1
--- OUTSIDE RECORDS SUMMARY | 2025-04-17 09:31 | XMS_ITS | Clinical Summary ---
Author Organization [facility] Address [address] [facility] [address] [place] [address] Care Team Providers Care Business System Consultant Name Role Phone Unavailable Primary Care Provider Unavailabl e Social History Tobacco Use Types Packs/Day Years Used Date Smoking Tobacco: Never Assessed Sex and Gender Information Value Date Recorded Sex Assigned at Male 08/21/2023 1:33 PM EST Legal Sex Male 1:32 PM EST Gender Identity Male 08/21/2023 1:33 PM EST Sexual Orientation Not on file Plan of Treatment Health Maintenance Due Date Last Done Comments CT Colonography 1974 Colonoscopy 1974 Colorectal Cancer Screening 1974 Depression Screening 1974 FIT DNA/Cologuard 1974 FIT 1974 FOBT 1975 HIV Screening 1975 Lipid Panel 1974 SDOH Screening 1975 Sigmoidoscopy 1974 Disability Screening 1974 Alcohol/Substance Use Screening 1986 Tobacco Screening 1986 Family Planning (PISQ) 1989 Hepatitis C Screening 1992 DTaP/Tdap/Td Vaccines (1 - Tdap) 1993 Hepatitis B Vaccines (1 of 3 - 19+ 3-dose series) 1993 Pneumococcal Vaccine: 50+ Years (1 of 1 - PCV) 2024 Zoster Vaccines (1 of 2) 2024 COVID-19 Vaccine (3 - 2024-2 6 season) 2025 10/20/2020, 09/29/2020 Influenza Vaccine (#1) 2025 RSV Patients and Patients Aged 60 years or older (1 - 1-dose 75+ series) 2049 HIB Vaccines Aged Out No longer eligi ble based on patient's age to complete this topic HPV Vaccines Aged Out No longer eligi ble based on patient's age to complete this topic Hepatitis A Vaccines Aged Out No long er eligible based on patient's age to complete this topic IPV Vaccines Aged Out No longer eligi ble based on patient's age to complete this topic Meningococcal B Vaccine Aged Out No l onger eligible based on patient's age to complete this topic Meningococcal Vaccine Aged Out No sunil jaya eligible based on patient's age to complete this topic RSV under 20 months Aged Out No longe r eligible based on patient's age to complete this topic Rotavirus Vaccines Aged Out No longer eligible based on patient's age to complete this topic Insurance H[employer] PARTIAL
== END 2025-04-17 10:16 | disposition home or self-care (01) ==
LOC: HO.HGI 08:59
PROVIDERS: PCP Internal Medicine; Visit Provider Nurse Practitioner Family
DX: K21.9 Gastro-esophageal reflux disease without esophagitis (principal); R10.13 Epigastric pain; R14.0 Abdominal distension (gaseous); K52.9 Noninfective gastroenteritis and colitis, unspecified; R10.9 Unspecified abdominal pain
CPT/HCPCS: 99204

== ENCOUNTER 2025-04-17 08:58 | Outpatient (REF) | payer MEDICAID, SELFPAY ==
--- OUTSIDE RECORDS SUMMARY | 2025-04-18 17:20 | XMS_ITS | Clinical Summary ---
Author Organization [facility] Address [address] [facility] [address] [place] [address] Care Team Providers Care Pipe Threading Machine Operator Name Role Phone Unavailable Primary Care Provider [...]
== END 2025-04-17 08:59 | disposition home or self-care (01) ==
LOC: HO.LNP 08:58
PROVIDERS: PCP Internal Medicine; Visit Provider Nurse Practitioner Family
DX: K21.9 Gastro-esophageal reflux disease without esophagitis (principal); K58.2 Mixed irritable bowel syndrome; R10.13 Epigastric pain; R14.0 Abdominal distension (gaseous); R15.9 Full incontinence of feces; E55.9 Vitamin D deficiency, unspecified; Z83.3 Family history of diabetes mellitus
CPT/HCPCS: 83013; 99212

== ENCOUNTER 2025-07-18 06:52 | Outpatient (REF) | payer MEDICAID, SELFPAY ==
--- OUTSIDE RECORDS SUMMARY | 2025-07-18 08:36 | XMS_ITS | Clinical Summary ---
Author Organization [facility] Address [address] [facility] [address] [place] [address] Care Team Providers Care Template Checker Name Role Phone Unavailable Primary Care Provider [...]
[2025-07-18 09:10] LABS: Lipase 24 U/L (8-78)
[2025-07-18 09:36] LABS: Folate 9.2 ng/mL (> or = 4.0); Vitamin B12 410 pg/mL (200-900)
[2025-07-19 20:03] LABS: Transglutaminase Ab IgG <1.0 U/mL
== END 2025-07-18 06:53 | disposition home or self-care (01) ==
LOC: HO.LAB 06:52
PROVIDERS: PCP Internal Medicine; Referring Provider Internal Medicine; Visit Provider Nurse Practitioner Family
DX: K58.9 Irritable bowel syndrome, unspecified (principal); E55.9 Vitamin D deficiency, unspecified; K59.00 Constipation, unspecified; R19.7 Diarrhea, unspecified; R10.9 Unspecified abdominal pain; Z83.3 Family history of diabetes mellitus; E11.9 Type 2 diabetes mellitus without complications
CPT/HCPCS: 36415; 82306; 82607; 82746; 83036; 83690; 84443; 86140; 86364